=== PATIENT | male | born 1960 | race Caucasian/White ===

== ENCOUNTER 2021-12-29 19:24 | Inpatient (IN) | payer MEDICARE, MEDICAID ==
[~2021-12-29] VITALS: Ht 172.7 cm; Wt 144.9 kg
[2021-12-29 19:26] VITALS: BP 87/39
[2021-12-29] MEDS ORDERED: cefTRIAXone 1GM/50ML D5W 50 ML IV ONE (19:45)
[2021-12-29] MEDS ORDERED: DexAMETHasone SOD PHOS 10MG/1ML VIAL INJ IV ONE (19:45)
[2021-12-29] MEDS ORDERED: AZITHROMYCIN 500MG/ 250ML 250 ML IV ONE (19:45)
[2021-12-29] MEDS ORDERED: SODIUM CHLORIDE 0.9% 500 ML IV ONE (20:00)
[2021-12-29] MEDS ORDERED: LORazepam 2MG/ML-1ML VIAL IV ONE (20:15)
[2021-12-29 20:20] LABS: Albumin 1.6 g/dL (3.4-5.0); BUN/Creatinine Ratio 12.5; Calcium 8.2 mg/dL (8.5-10.1); Potassium 5.4 mmol/L (3.5-5.1)
[2021-12-29 20:23] LABS: Bilirubin, Total 1.9 mg/dL (0.2-1.0); Lactic Acid w/Reflex 3.5 mmol/L (0.4-2.0); Total Protein 6.3 g/dL (6.4-8.2)
[2021-12-29] MEDS: NOREPINEPHRINE 8 MG/250ML KIT 250 ML IV SCH (21:52)
[2021-12-29] MEDS ORDERED: NITROGLYCERIN 0.4 MG SL TAB SL PRN (22:00)
[2021-12-29] MEDS ORDERED: SODIUM BICARBONATE 8.4 % INJ 50ML VIAL IV ONE (22:00)
[2021-12-29] MEDS ORDERED: ALBUMIN 5% 250 ML IV ONE (22:00)
[2021-12-29] MEDS ORDERED: ACETAMINOPHEN 325 MG TAB PO PRN (22:00)
[2021-12-29] MEDS ORDERED: CALCIUM GLUC 1,000mg/50ml-NS 50 ML IV ONE (22:00)
[2021-12-29] MEDS ORDERED: InsuLIN REG 1unit/0.01ml Soln (100units/ml) IV ONE (22:00)
[2021-12-29] MEDS ORDERED: DEXTROSE (50%) 50ML SYRG IV PRN (22:00)
[2021-12-29] MEDS ORDERED: SODIUM ZIRCONIUM CYCL 10 GM PAK PO ONE (22:00)
[2021-12-29] MEDS ORDERED: DEXTROSE (50%) 50ML SYRG IV ONE (22:00)
[2021-12-29 22:25] VITALS: BP 84/49
[2021-12-29 22:34] LABS: Hematocrit 33.9 % (41.0-53.0); Hemoglobin 10.9 g/dL (13.5-17.5); Mean Corpuscular Hgb Conc. 32.2 g/dL (32.0-36.0); Mean Corpuscular Volume 77.6 fL (80.0-100.0); Red Blood Cells 4.36 10^6/uL (4.5-5.90); Red Cell Distribution Width 19.2 % (11.8-14.3); White Blood Cell 3.9 10^3/uL (4.4-10.8)
[2021-12-29 22:43] LABS: Basophils % (manual) 0 (0.0-2.0); Eosinophils % (manual) 0 (0-7); Metamyelocytes % 0; Promyelocytes % 0; Reactive Lymphocytes 0
[2021-12-29 22:59] VITALS: BP 87/39
[2021-12-29 23:44] LABS: Band Neutrophils % (manual) 6; Blast Cells 3; Lymphocytes % (manual) 43 (10.0-50.0); Monocytes % (manual) 44 (0-12); Myelocytes % 3
[2021-12-30] VITALS (89 sets, daily range): BP systolic 12–173; BP diastolic 10–104
[2021-12-30] MEDS: MORPHINE SULFATE INJ 2 MG/ml SYRG IV PRN (02:15)
[2021-12-30] MEDS ORDERED: AMIODARONE HCL 150 MG in D5W 5% 100 ML IV ONE (03:15)
[2021-12-30] MEDS ORDERED: AMIODARONE HCL (50 MG/ ML) 3 ML VIAL IV ONE (03:18)
[2021-12-30] MEDS: PHENYLEPHRINE IV 250 ML IV SCH ×4 (03:30→22:12)
[2021-12-30] MEDS ORDERED: ENOXAPARIN SOD 100 MG/1 ML SYRINGE SC ONE (03:30)
[2021-12-30] MEDS ORDERED: AMIODARONE 450mg/250ml AE 250 ML IV SCH (03:30)
[2021-12-30] MEDS ORDERED: PHENYLEPHRINE IV 250 ML IV ONE ×2 (03:50→05:18)
[2021-12-30 04:02] LABS: Red Cell Distribution Width 19.7 % (11.8-14.3)
[2021-12-30 04:05] LABS: Hematocrit 38.4 % (41.0-53.0); Hemoglobin 11.6 g/dL (13.5-17.5); Mean Corpuscular Hgb Conc. 30.2 g/dL (32.0-36.0); Mean Corpuscular Volume 79.6 fL (80.0-100.0); Red Blood Cells 4.83 10^6/uL (4.5-5.90); White Blood Cell 9.9 10^3/uL (4.4-10.8)
[2021-12-30] MEDS ORDERED: VASOPRESSIN 20 UNIT/ML ONE (04:10)
[2021-12-30 04:25] LABS: Albumin 2.1 g/dL (3.4-5.0); BUN/Creatinine Ratio 11.6; Calcium 8.9 mg/dL (8.5-10.1); Potassium 5.5 mmol/L (3.5-5.1)
[2021-12-30 04:27] LABS: Bilirubin, Total 2.1 mg/dL (0.2-1.0); Total Protein 7.2 g/dL (6.4-8.2)
[2021-12-30] MEDS: ACCU-CHEK COMFORT CURVE STRIP VI SCH ×6 (04:28→20:36)
[2021-12-30] MEDS: InsuLIN REG 1unit/0.01ml Soln (100units/ml) SC SCH ×6 (04:31→20:37)
[2021-12-30 04:38] LABS: Basophils % (manual) 0 (0.0-2.0); Eosinophils % (manual) 0 (0-7); Promyelocytes % 0; Reactive Lymphocytes 0
[2021-12-30] MEDS: VASOPRESSIN 50 UNITS in D5W 5% 247.5 ML IV SCH (05:45)
[2021-12-30] MEDS ORDERED: FUROSEMIDE 20 MG/2 ML VIAL IV SCH (06:00)
[2021-12-30] MEDS: NOREPINEPHRINE 8 MG/250ML KIT 250 ML IV SCH ×3 (06:47→21:23)
[2021-12-30 07:02] LABS: Band Neutrophils % (manual) 4; Lymphocytes % (manual) 52 (10.0-50.0); Metamyelocytes % 4; Monocytes % (manual) 23 (0-12); Myelocytes % 12
[2021-12-30 07:03] LABS: Blast Cells 2
[2021-12-30] MEDS ORDERED: cefTRIAXone 1GM/50ML D5W 50 ML IV SCH (09:00)
[2021-12-30] MEDS: AMIODARONE 450mg/250ml AE 250 ML IV SCH (09:41)
[2021-12-30] MEDS ORDERED: ASPirin 81 mg TAB PO SCH (10:00)
[2021-12-30] MEDS ORDERED: SODIUM CHLORIDE 0.9% 1,000 ML IV SCH (10:00)
[2021-12-30] MEDS ORDERED: AZITHROMYCIN 500MG/ 250ML 250 ML IV SCH (10:00)
[2021-12-30] MEDS ORDERED: BUMETANIDE 2.5mg/10ml (0.25 mg/ml) INJ IV ONE (10:00)
[2021-12-30] MEDS ORDERED: PANTOPRAZOLE 40 MG TAB PO SCH (10:00)
[2021-12-30] MEDS ORDERED: ALBUTEROL SULF 2.5 MG/0.5ML(0.5%) NEB SOLN NEB ONE (12:15)
[2021-12-30] MEDS ORDERED: SODIUM BICARBONATE 8.4% INJ 50ML SYRINGE IV ONE (12:15)
[2021-12-30] MEDS: SODIUM BICARBONATE 50ML VIAL 50 ML in SOD CHL 0.45% 1,000 ML IV SCH (12:30)
[2021-12-30] MEDS ORDERED: ALBUTEROL SULF 2.5 MG/0.5ML(0.5%) NEB SOLN ONE (12:35)
[2021-12-30 14:05] LABS: INR 2.11 (0.9-1.15); Partial Thromboplastin Time 34.7 sec (23.6-33.0)
[2021-12-30] MEDS: LINEZOLID 600MG/300ML 300 ML IV SCH ×2 (14:08→21:24)
[2021-12-30] MEDS ORDERED: LIDOCAINE 1% (LOCAL ANESTH.) PF 5ml SDV ID ONE (15:45)
[2021-12-30] MEDS: MEROPENEM 500MG IVPB 50 ML IV SCH (16:09)
[2021-12-30] MEDS: BUMETANIDE 2.5mg/10ml (0.25 mg/ml) INJ IV SCH (18:49)
[2021-12-30] MEDS: SODIUM CHLOR 0.9% PF (SALINE LOCK) 10ML VIAL/SYR IV SCH (21:32)
[2021-12-30] MEDS ORDERED: ATORVASTATIN 20 MG TAB PO SCH (22:00)
[2021-12-31] VITALS (98 sets, daily range): BP systolic 14–171; BP diastolic 26–83
[2021-12-31] MEDS: MEROPENEM 500MG IVPB 50 ML IV SCH ×2 (00:17→13:15)
[2021-12-31] MEDS: InsuLIN REG 1unit/0.01ml Soln (100units/ml) SC SCH ×6 (00:22→19:28)
[2021-12-31] MEDS: ACCU-CHEK COMFORT CURVE STRIP VI SCH ×6 (00:22→19:27)
[2021-12-31] MEDS: PHENYLEPHRINE IV 250 ML IV SCH ×2 (02:23→07:39)
[2021-12-31] MEDS: AMIODARONE 450mg/250ml AE 250 ML IV SCH ×3 (02:39→18:00)
[2021-12-31] MEDS: SODIUM BICARBONATE 50ML VIAL 50 ML in SOD CHL 0.45% 1,000 ML IV SCH ×2 (02:39→16:15)
[2021-12-31] MEDS: NOREPINEPHRINE 8 MG/250ML KIT 250 ML IV SCH ×4 (02:39→23:56)
[2021-12-31 04:18] LABS: INR 2.12 (0.9-1.15); Partial Thromboplastin Time 30.7 sec (23.6-33.0)
[2021-12-31 04:40] LABS: Hematocrit 37.8 % (41.0-53.0); Mean Corpuscular Hemoglobin 24.8 pg (28.0-32.0); Mean Corpuscular Hgb Conc. 31.8 g/dL (32.0-36.0); Red Blood Cells 4.85 10^6/uL (4.5-5.90); White Blood Cell 16.5 10^3/uL (4.4-10.8)
[2021-12-31 04:43] LABS: Basophils % (manual) 0 (0.0-2.0); Blast Cells 0; Eosinophils % (manual) 0 (0-7); Promyelocytes % 0; Reactive Lymphocytes 0
[2021-12-31 05:09] LABS: Albumin 1.8 g/dL (3.4-5.0); BUN/Creatinine Ratio 15.7; Calcium 8.4 mg/dL (8.5-10.1); Magnesium 2.4 mg/dL (1.6-2.6); Potassium 5.5 mmol/L (3.5-5.1)
[2021-12-31 05:11] LABS: Bilirubin, Total 2.8 mg/dL (0.2-1.0); Total Protein 6.4 g/dL (6.4-8.2)
[2021-12-31] MEDS: VASOPRESSIN 50 UNITS in D5W 5% 247.5 ML IV SCH (05:25)
[2021-12-31] MEDS: BUMETANIDE 2.5mg/10ml (0.25 mg/ml) INJ IV SCH ×2 (05:25→17:45)
[2021-12-31] MEDS ORDERED: ALBUTEROL SULF 2.5 MG/0.5ML(0.5%) NEB SOLN NEB ONE (08:00)
[2021-12-31] MEDS ORDERED: SODIUM BICARBONATE 8.4% INJ 50ML SYRINGE IV ONE (08:00)
[2021-12-31 08:38] LABS: Band Neutrophils % (manual) 14; Lymphocytes % (manual) 38 (10.0-50.0); Metamyelocytes % 11; Monocytes % (manual) 12 (0-12); Myelocytes % 4
[2021-12-31 08:52] LABS: Urine Bacteria NONE SEEN /hpf (None Seen); Urine Blood 2+ /uL (Negative); Urine Specific Gravity 1.012 (1.001-1.035); Urine WBC 184 /hpf (0 - 3); Urine WBC Clumps PRESENT /hpf (None Seen)
[2021-12-31 09:15] LABS: Protein, Urine 109.9 mg/dL (0.0-11.9)
[2021-12-31] MEDS: PANTOPRAZOLE 40 MG/10 ML VIAL INJ IV SCH (09:45)
[2021-12-31] MEDS: SODIUM CHLOR 0.9% PF (SALINE LOCK) 10ML VIAL/SYR IV SCH ×2 (09:45→21:22)
[2021-12-31] MEDS: LINEZOLID 600MG/300ML 300 ML IV SCH ×2 (09:45→21:23)
[2021-12-31] MEDS: MORPHINE SULFATE INJ 2 MG/ml SYRG IV PRN ×2 (10:24→18:00)
[2022-01-01] VITALS (94 sets, daily range): BP systolic 78–208; BP diastolic 24–162
[2022-01-01] MEDS: ACCU-CHEK COMFORT CURVE STRIP VI SCH ×7 (00:13→23:27)
[2022-01-01] MEDS: InsuLIN REG 1unit/0.01ml Soln (100units/ml) SC SCH ×7 (00:14→23:28)
[2022-01-01] MEDS: MEROPENEM 500MG IVPB 50 ML IV SCH ×2 (00:20→14:14)
[2022-01-01 04:20] LABS: Mean Corpuscular Hgb Conc. 31.9 g/dL (32.0-36.0)
[2022-01-01 04:29] LABS: Hematocrit 35.1 % (41.0-53.0); Hemoglobin 11.2 g/dL (13.5-17.5); Mean Corpuscular Hemoglobin 23.9 pg (28.0-32.0); Mean Corpuscular Volume 74.8 fL (80.0-100.0); Red Blood Cells 4.69 10^6/uL (4.5-5.90); Red Cell Distribution Width 19.8 % (11.8-14.3)
[2022-01-01 04:36] LABS: Basophils % (manual) 0 (0.0-2.0); Eosinophils % (manual) 0 (0-7); Promyelocytes % 0; Reactive Lymphocytes 0
[2022-01-01 04:40] LABS: Albumin 1.7 g/dL (3.4-5.0); BUN/Creatinine Ratio 19.9; Calcium 8.2 mg/dL (8.5-10.1); Potassium 4.8 mmol/L (3.5-5.1)
[2022-01-01 04:49] LABS: Bilirubin, Total 1.9 mg/dL (0.2-1.0)
[2022-01-01] MEDS: PHENYLEPHRINE IV 250 ML IV SCH ×3 (05:30→21:32)
[2022-01-01] MEDS: VASOPRESSIN 50 UNITS in D5W 5% 247.5 ML IV SCH (05:38)
[2022-01-01] MEDS: SODIUM BICARBONATE 50ML VIAL 50 ML in SOD CHL 0.45% 1,000 ML IV SCH (05:42)
[2022-01-01] MEDS: BUMETANIDE 2.5mg/10ml (0.25 mg/ml) INJ IV SCH (05:42)
[2022-01-01] MEDS: ONDANSETRON HCL 4 MG/2 ML VIAL IV PRN ×2 (08:10→12:21)
[2022-01-01] MEDS: MORPHINE SULFATE INJ 2 MG/ml SYRG IV PRN ×2 (08:10→12:21)
[2022-01-01] MEDS ORDERED: SODIUM CHLORIDE 0.9% 1,000 ML IV SCH (09:00)
[2022-01-01] MEDS: LINEZOLID 600MG/300ML 300 ML IV SCH (09:57)
[2022-01-01] MEDS: SODIUM CHLOR 0.9% PF (SALINE LOCK) 10ML VIAL/SYR IV SCH ×2 (09:57→21:32)
[2022-01-01] MEDS: PANTOPRAZOLE 40 MG/10 ML VIAL INJ IV SCH (09:57)
[2022-01-01 12:12] LABS: Band Neutrophils % (manual) 22; Blast Cells 1; Lymphocytes % (manual) 5 (10.0-50.0); Metamyelocytes % 26; Monocytes % (manual) 9 (0-12); Myelocytes % 13
[2022-01-01] MEDS: DIGOXIN (250MCG/ML) 2 ML AMPULE IV SCH (14:15)
[2022-01-01] MEDS ORDERED: levoFLOXacin 500MG 100 ML IV SCH (14:22)
[2022-01-01] MEDS: SODIUM CHLORIDE 0.9% 1,000 ML IV SCH (14:29)
[2022-01-01] MEDS ORDERED: levoFLOXacin 500MG 100 ML IV ONE (14:30)
[2022-01-01] MEDS: NOREPINEPHRINE 8 MG/250ML KIT 250 ML IV SCH (21:30)
[2022-01-02] VITALS (83 sets, daily range): BP systolic 74–236; BP diastolic 17–142
[2022-01-02] MEDS: MEROPENEM 500MG IVPB 50 ML IV SCH (00:04)
[2022-01-02] MEDS: AMIODARONE 450mg/250ml AE 250 ML IV SCH ×2 (01:38→14:07)
[2022-01-02 03:45] LABS: Hemoglobin 9.6 g/dL (13.5-17.5)
[2022-01-02 03:48] LABS: Hematocrit 31.8 % (41.0-53.0); Mean Corpuscular Hemoglobin 23.6 pg (28.0-32.0); Mean Corpuscular Hgb Conc. 30.3 g/dL (32.0-36.0); Mean Corpuscular Volume 77.9 fL (80.0-100.0); Red Blood Cells 4.08 10^6/uL (4.5-5.90); Red Cell Distribution Width 19.8 % (11.8-14.3)
[2022-01-02] MEDS: ACCU-CHEK COMFORT CURVE STRIP VI SCH ×4 (04:13→18:11)
[2022-01-02] MEDS: InsuLIN REG 1unit/0.01ml Soln (100units/ml) SC SCH ×4 (04:14→18:25)
[2022-01-02 04:16] LABS: Albumin 1.4 g/dL (3.4-5.0); Calcium 6.6 mg/dL (8.5-10.1)
[2022-01-02 04:21] LABS: Bilirubin, Total 0.9 mg/dL (0.2-1.0); Total Protein 4.8 g/dL (6.4-8.2)
[2022-01-02 04:33] LABS: White Blood Cell 35.2 10^3/uL (4.4-10.8)
[2022-01-02 04:34] LABS: Basophils % (manual) 0 (0.0-2.0); Blast Cells 0; Eosinophils % (manual) 0 (0-7); Promyelocytes % 0; Reactive Lymphocytes 0
[2022-01-02] MEDS: PHENYLEPHRINE IV 250 ML IV SCH ×3 (06:30→23:20)
[2022-01-02 07:06] LABS: Band Neutrophils % (manual) 9; Lymphocytes % (manual) 17 (10.0-50.0); Metamyelocytes % 9; Monocytes % (manual) 2 (0-12); Myelocytes % 35
[2022-01-02] MEDS: SODIUM CHLORIDE 0.9% 1,000 ML IV SCH ×2 (07:48→09:30)
[2022-01-02] MEDS ORDERED: DEXTROSE (50%) 50ML SYRG IV PRN (09:30)
[2022-01-02] MEDS: PANTOPRAZOLE 40 MG/10 ML VIAL INJ IV SCH (09:36)
[2022-01-02] MEDS: levoFLOXacin 250MG 50 ML IV SCH (09:38)
[2022-01-02] MEDS: SODIUM CHLOR 0.9% PF (SALINE LOCK) 10ML VIAL/SYR IV SCH ×2 (09:41→21:47)
[2022-01-02] MEDS ORDERED: DIGOXIN (250MCG/ML) 2 ML AMPULE IV SCH (10:00)
[2022-01-02] MEDS ORDERED: METOPROLOL TARTRATE 25 MG TAB PO SCH (10:00)
[2022-01-02] MEDS: INSULIN LANTUS (GLARGINE) 1 /0.01ml (100units/ml) SC SCH ×2 (10:20→21:48)
[2022-01-02] MEDS: ALBUMIN 25% 100 ML IV SCH ×2 (10:23→18:11)
[2022-01-02] MEDS: MEROPENEM 1GM IVPB 100 ML IV SCH (14:12)
[2022-01-02] MEDS: NOREPINEPHRINE 8 MG/250ML KIT 250 ML IV SCH (23:17)
[2022-01-03] VITALS (101 sets, daily range): BP systolic 77–164; BP diastolic 29–144
[2022-01-03] MEDS: ACCU-CHEK COMFORT CURVE STRIP VI SCH ×4 (00:06→17:59)
[2022-01-03] MEDS: InsuLIN REG 1unit/0.01ml Soln (100units/ml) SC SCH ×4 (00:09→18:01)
[2022-01-03] MEDS: ALBUMIN 25% 100 ML IV SCH (01:08)
[2022-01-03] MEDS: MEROPENEM 1GM IVPB 100 ML IV SCH ×2 (01:08→15:09)
[2022-01-03] MEDS: AMIODARONE 450mg/250ml AE 250 ML IV SCH ×3 (03:04→22:12)
[2022-01-03 04:04] LABS: Mean Corpuscular Hgb Conc. 30.5 g/dL (32.0-36.0); Red Blood Cells 4.25 10^6/uL (4.5-5.90)
[2022-01-03 04:08] LABS: Hematocrit 33.3 % (41.0-53.0); Hemoglobin 10.2 g/dL (13.5-17.5); Mean Corpuscular Hemoglobin 23.9 pg (28.0-32.0); Mean Corpuscular Volume 78.3 fL (80.0-100.0)
[2022-01-03 04:15] LABS: Calcium 7.4 mg/dL (8.5-10.1)
[2022-01-03 04:18] LABS: BUN/Creatinine Ratio 27.6
[2022-01-03 04:27] LABS: Red Cell Distribution Width 20.1 % (11.8-14.3)
[2022-01-03 04:29] LABS: Basophils % (manual) 0 (0.0-2.0); Blast Cells 0; Eosinophils % (manual) 0 (0-7); Promyelocytes % 0; Reactive Lymphocytes 0
[2022-01-03] MEDS: PHENYLEPHRINE IV 250 ML IV SCH ×4 (04:29→20:19)
[2022-01-03 04:50] LABS: Band Neutrophils % (manual) 8; Lymphocytes % (manual) 15 (10.0-50.0); Metamyelocytes % 2; Monocytes % (manual) 10 (0-12); Myelocytes % 18
[2022-01-03] MEDS: SODIUM CHLORIDE 0.9% 1,000 ML IV SCH (05:58)
[2022-01-03] MEDS: NOREPINEPHRINE 8 MG/250ML KIT 250 ML IV SCH (09:09)
[2022-01-03] MEDS: PANTOPRAZOLE 40 MG/10 ML VIAL INJ IV SCH (10:22)
[2022-01-03] MEDS: SODIUM CHLOR 0.9% PF (SALINE LOCK) 10ML VIAL/SYR IV SCH ×2 (10:22→22:13)
[2022-01-03] MEDS: DIGOXIN (250MCG/ML) 2 ML AMPULE IV SCH (10:24)
[2022-01-03] MEDS: levoFLOXacin 250MG 50 ML IV SCH (10:25)
[2022-01-03] MEDS: INSULIN LANTUS (GLARGINE) 1 /0.01ml (100units/ml) SC SCH ×2 (10:42→22:09)
[2022-01-03] MEDS ORDERED: LINEZOLID 600MG/300ML 300 ML IV SCH (10:45)
[2022-01-03] MEDS ORDERED: FLUCONAZOLE 200MG/100ML 100 ML IV SCH ×2 (11:00)
[2022-01-03] MEDS: LINEZOLID 600MG/300ML 300 ML IV SCH ×2 (11:58→22:12)
[2022-01-03] MEDS: FLUCONAZOLE 200MG/100ML 100 ML IV SCH ×2 (14:00→17:59)
[2022-01-04] VITALS (86 sets, daily range): BP systolic 91–149; BP diastolic 42–72
[2022-01-04] MEDS: ACCU-CHEK COMFORT CURVE STRIP VI SCH ×4 (00:12→17:47)
[2022-01-04] MEDS: InsuLIN REG 1unit/0.01ml Soln (100units/ml) SC SCH ×4 (00:13→17:51)
[2022-01-04] MEDS: PHENYLEPHRINE IV 250 ML IV SCH (01:22)
[2022-01-04] MEDS: MEROPENEM 1GM IVPB 100 ML IV SCH ×3 (01:22→21:48)
[2022-01-04] MEDS: SODIUM CHLORIDE 0.9% 1,000 ML IV SCH (01:30)
[2022-01-04 04:11] LABS: BUN/Creatinine Ratio 33.7; Calcium 6.9 mg/dL (8.5-10.1); Potassium 3.9 mmol/L (3.5-5.1)
[2022-01-04 04:13] LABS: Hematocrit 31.9 % (41.0-53.0); Hemoglobin 9.6 g/dL (13.5-17.5); Mean Corpuscular Hemoglobin 23.6 pg (28.0-32.0); Mean Corpuscular Hgb Conc. 30.1 g/dL (32.0-36.0); Mean Corpuscular Volume 78.3 fL (80.0-100.0); Red Blood Cells 4.07 10^6/uL (4.5-5.90)
[2022-01-04] MEDS: MORPHINE SULFATE INJ 2 MG/ml SYRG IV PRN ×2 (04:16→10:04)
[2022-01-04 04:27] LABS: Basophils % (manual) 0 (0.0-2.0); Blast Cells 0; Reactive Lymphocytes 0; Red Cell Distribution Width 20.1 % (11.8-14.3); White Blood Cell 47.9 10^3/uL (4.4-10.8)
[2022-01-04 07:46] LABS: Band Neutrophils % (manual) 6; Eosinophils % (manual) 1 (0-7); Lymphocytes % (manual) 11 (10.0-50.0); Metamyelocytes % 9; Monocytes % (manual) 8 (0-12); Myelocytes % 11; Promyelocytes % 3
[2022-01-04] MEDS: levoFLOXacin 250MG 50 ML IV SCH (09:48)
[2022-01-04] MEDS: SODIUM CHLOR 0.9% PF (SALINE LOCK) 10ML VIAL/SYR IV SCH ×2 (09:48→21:52)
[2022-01-04] MEDS: PANTOPRAZOLE 40 MG/10 ML VIAL INJ IV SCH (09:48)
[2022-01-04] MEDS: INSULIN LANTUS (GLARGINE) 1 /0.01ml (100units/ml) SC SCH ×2 (10:00→21:50)
[2022-01-04] MEDS: FLUCONAZOLE 200MG/100ML 100 ML IV SCH ×2 (12:08→13:14)
[2022-01-04] MEDS ORDERED: AMIODARONE HCL 200 MG TAB PO ONE (14:25)
[2022-01-04] MEDS: NOREPINEPHRINE 8 MG/250ML KIT 250 ML IV SCH (20:11)
[2022-01-04] MEDS: AMOXICILLIN/CLAVULAN 500 MG TAB PO SCH (21:37)
[2022-01-04] MEDS: AMIODARONE HCL 200 MG TAB PO SCH (21:40)
[2022-01-05] VITALS (37 sets, daily range): BP systolic 89–143; BP diastolic 44–80
[2022-01-05] MEDS: ACCU-CHEK COMFORT CURVE STRIP VI SCH ×4 (00:18→17:46)
[2022-01-05] MEDS: InsuLIN REG 1unit/0.01ml Soln (100units/ml) SC SCH ×4 (00:19→17:49)
[2022-01-05] MEDS: PHENYLEPHRINE IV 250 ML IV SCH ×2 (04:20→12:40)
[2022-01-05 04:38] LABS: Hematocrit 33.6 % (41.0-53.0); Hemoglobin 10.4 g/dL (13.5-17.5); Mean Corpuscular Volume 77.2 fL (80.0-100.0); Red Blood Cells 4.35 10^6/uL (4.5-5.90); Red Cell Distribution Width 19.2 % (11.8-14.3)
[2022-01-05 04:48] LABS: Albumin 1.9 g/dL (3.4-5.0); BUN/Creatinine Ratio 44.3; Bilirubin, Total 0.7 mg/dL (0.2-1.0); Calcium 7.8 mg/dL (8.5-10.1); Total Protein 5.4 g/dL (6.4-8.2)
[2022-01-05 05:16] LABS: White Blood Cell 48.6 10^3/uL (4.4-10.8)
[2022-01-05 05:18] LABS: Basophils % (manual) 0 (0.0-2.0); Blast Cells 0; Eosinophils % (manual) 0 (0-7); Promyelocytes % 0; Reactive Lymphocytes 0
[2022-01-05 05:32] LABS: Metamyelocytes % 6; Monocytes % (manual) 4 (0-12); Myelocytes % 12
[2022-01-05 05:34] LABS: Band Neutrophils % (manual) 14; Lymphocytes % (manual) 11 (10.0-50.0)
[2022-01-05] MEDS: MEROPENEM 1GM IVPB 100 ML IV SCH ×3 (05:34→22:32)
[2022-01-05] MEDS: AMOXICILLIN/CLAVULAN 500 MG TAB PO SCH (05:34)
[2022-01-05] MEDS: INSULIN LANTUS (GLARGINE) 1 /0.01ml (100units/ml) SC SCH ×2 (10:00→22:41)
[2022-01-05] MEDS: PANTOPRAZOLE 40 MG/10 ML VIAL INJ IV SCH (10:11)
[2022-01-05] MEDS: levoFLOXacin 250MG 50 ML IV SCH (10:11)
[2022-01-05] MEDS: DIGOXIN (250MCG/ML) 2 ML AMPULE IV SCH (10:11)
[2022-01-05] MEDS: SODIUM CHLOR 0.9% PF (SALINE LOCK) 10ML VIAL/SYR IV SCH ×2 (10:12→22:32)
[2022-01-05] MEDS: AMIODARONE HCL 200 MG TAB PO SCH ×2 (10:12→22:37)
[2022-01-05] MEDS: FLUCONAZOLE 200MG/100ML 100 ML IV SCH ×2 (12:56→13:56)
[2022-01-05] MEDS ORDERED: VANCOMYCIN PER PHARMACY 0 MG IV SCH (14:45)
[2022-01-05] MEDS ORDERED: MECLIZINE HCL 25 MG TAB PO PRN (15:15)
[2022-01-05] MEDS ORDERED: ATOR40TA52 PO (15:42)
[2022-01-05] MEDS ORDERED: FOLI1TAB6 PO (15:42)
[2022-01-05] MEDS ORDERED: PANT40TA2 PO (15:42)
[2022-01-05] MEDS ORDERED: LEVO50TA7 PO (15:42)
[2022-01-05] MEDS ORDERED: IPRA0.00 NEB (15:42)
[2022-01-05] MEDS ORDERED: FERR-20 PO (15:42)
[2022-01-05] MEDS ORDERED: LOSA-69 PO (15:42)
[2022-01-05] MEDS ORDERED: ALLO100T PO (15:42)
[2022-01-05] MEDS ORDERED: VANCOMYCIN 1GM/250ML 250 ML IV SCH (17:00)
[2022-01-05] MEDS ORDERED: EPINEPHrine HCL 1 MG/1 ML AMP ONE (17:58)
[2022-01-05] MEDS ORDERED: diphenhdrAMINE HCL 50 MG/1 ML VL ONE (17:59)
[2022-01-05] MEDS ORDERED: methylPREDNISolone SOD SUCC 40 MG/ML VL ONE (18:03)
[2022-01-05] MEDS ORDERED: ALBUTEROL SULF 2.5 MG/0.5ML(0.5%) NEB SOLN ONE (18:04)
[2022-01-05] MEDS ORDERED: IPRATROPIUM BROM 0.5 MG/2.5ML INH SOL ONE (18:04)
[2022-01-05] MEDS ORDERED: EPINEPHrine HCL 0.5 ML NEB ONE (18:04)
[2022-01-05] MEDS ORDERED: diphenhdrAMINE HCL 50 MG/1 ML VL IV ONE (18:15)
[2022-01-05] MEDS ORDERED: EPINEPHrine HCL 1 MG/1 ML AMP IM ONE (18:15)
[2022-01-05] MEDS ORDERED: methylPREDNISolone SOD SUCC 125 MG/2 ML VL IV ONE (18:15)
[2022-01-06] VITALS (27 sets, daily range): BP systolic 105–139; BP diastolic 51–85
[2022-01-06] MEDS: ACCU-CHEK COMFORT CURVE STRIP VI SCH ×5 (00:14→23:37)
[2022-01-06] MEDS: InsuLIN REG 1unit/0.01ml Soln (100units/ml) SC SCH ×5 (00:16→23:52)
[2022-01-06 04:37] LABS: Hemoglobin 10.4 g/dL (13.5-17.5)
[2022-01-06 04:43] LABS: Hematocrit 33.5 % (41.0-53.0); Mean Corpuscular Hemoglobin 23.8 pg (28.0-32.0); Mean Corpuscular Volume 76.6 fL (80.0-100.0); Red Blood Cells 4.37 10^6/uL (4.5-5.90); Red Cell Distribution Width 19.8 % (11.8-14.3)
[2022-01-06 04:54] LABS: BUN/Creatinine Ratio 43.5; Calcium 7.9 mg/dL (8.5-10.1)
[2022-01-06 05:04] LABS: White Blood Cell 56.5 10^3/uL (4.4-10.8)
[2022-01-06 05:06] LABS: Basophils % (manual) 0 (0.0-2.0); Blast Cells 0; Eosinophils % (manual) 0 (0-7); Promyelocytes % 0; Reactive Lymphocytes 0
[2022-01-06] MEDS: MEROPENEM 1GM IVPB 100 ML IV SCH (05:56)
[2022-01-06 08:03] LABS: Band Neutrophils % (manual) 16; Lymphocytes % (manual) 5 (10.0-50.0); Metamyelocytes % 4; Monocytes % (manual) 4 (0-12); Myelocytes % 8
[2022-01-06] MEDS: levoFLOXacin 250MG 50 ML IV SCH (09:20)
[2022-01-06] MEDS: FUROSEMIDE 40 MG TAB PO SCH (09:20)
[2022-01-06] MEDS: PANTOPRAZOLE 40 MG TAB PO SCH (09:20)
[2022-01-06] MEDS: AMIODARONE HCL 200 MG TAB PO SCH ×2 (09:21→22:00)
[2022-01-06] MEDS: SODIUM CHLOR 0.9% PF (SALINE LOCK) 10ML VIAL/SYR IV SCH ×2 (09:21→22:01)
[2022-01-06] MEDS: INSULIN LANTUS (GLARGINE) 1 /0.01ml (100units/ml) SC SCH ×2 (09:47→22:07)
[2022-01-06] MEDS: FLUCONAZOLE 200MG/100ML 100 ML IV SCH ×2 (11:34→13:12)
[2022-01-06] MEDS: metroNIDAZOLE 500MG/100ML 100 ML IV SCH ×2 (13:57→22:00)
[2022-01-06] MEDS: cefTAZidime 1 GM in SODIUM CHL 0.9% 50 ML IV SCH ×2 (15:23→23:28)
[2022-01-07] VITALS (28 sets, daily range): BP systolic 107–154; BP diastolic 47–81
[2022-01-07 04:33] LABS: Calcium 7.6 mg/dL (8.5-10.1); Potassium 4.5 mmol/L (3.5-5.1)
[2022-01-07 04:36] LABS: BUN/Creatinine Ratio 46.1
[2022-01-07 04:37] LABS: Hematocrit 31.5 % (41.0-53.0); Hemoglobin 9.9 g/dL (13.5-17.5); Mean Corpuscular Hgb Conc. 31.3 g/dL (32.0-36.0); Mean Corpuscular Volume 76.8 fL (80.0-100.0); Red Cell Distribution Width 19.4 % (11.8-14.3)
[2022-01-07 04:44] LABS: Bilirubin, Total 0.5 mg/dL (0.2-1.0); Total Protein 5.4 g/dL (6.4-8.2)
[2022-01-07] MEDS: metroNIDAZOLE 500MG/100ML 100 ML IV SCH ×2 (05:01→14:22)
[2022-01-07 05:10] LABS: White Blood Cell 51.5 10^3/uL (4.4-10.8)
[2022-01-07 05:11] LABS: Basophils % (manual) 0 (0.0-2.0); Blast Cells 0; Eosinophils % (manual) 0 (0-7); Myelocytes % 0; Promyelocytes % 0; Reactive Lymphocytes 0
[2022-01-07] MEDS: ACCU-CHEK COMFORT CURVE STRIP VI SCH ×3 (05:11→17:44)
[2022-01-07] MEDS: InsuLIN REG 1unit/0.01ml Soln (100units/ml) SC SCH ×3 (05:12→17:43)
[2022-01-07] MEDS: cefTAZidime 1 GM in SODIUM CHL 0.9% 50 ML IV SCH ×3 (06:13→21:40)
[2022-01-07 07:34] LABS: Band Neutrophils % (manual) 70; Lymphocytes % (manual) 4 (10.0-50.0); Metamyelocytes % 6; Monocytes % (manual) 3 (0-12)
[2022-01-07] MEDS: AMIODARONE HCL 200 MG TAB PO SCH ×2 (09:56→21:25)
[2022-01-07] MEDS: DIGOXIN 0.125 MG TAB PO SCH (09:59)
[2022-01-07] MEDS: PANTOPRAZOLE 40 MG TAB PO SCH (09:59)
[2022-01-07] MEDS: FUROSEMIDE 40 MG TAB PO SCH (10:00)
[2022-01-07] MEDS: INSULIN LANTUS (GLARGINE) 1 /0.01ml (100units/ml) SC SCH ×2 (10:02→21:37)
[2022-01-07] MEDS: SODIUM CHLOR 0.9% PF (SALINE LOCK) 10ML VIAL/SYR IV SCH ×2 (10:10→21:28)
[2022-01-07] MEDS: levoFLOXacin 250MG 50 ML IV SCH (10:10)
[2022-01-07 11:04] LABS: INR 1.45 (0.9-1.15); Partial Thromboplastin Time 26.5 sec (23.6-33.0)
[2022-01-07] MEDS: FLUCONAZOLE 200MG/100ML 100 ML IV SCH ×2 (13:02→14:20)
[2022-01-07] MEDS: MORPHINE SULFATE INJ 2 MG/ml SYRG IV PRN (16:21)
[2022-01-07] MEDS: metroNIDAZOLE 500 MG TAB PO SCH (21:26)
[2022-01-08] VITALS (14 sets, daily range): BP systolic 103–149; BP diastolic 48–90
[2022-01-08] MEDS: ACCU-CHEK COMFORT CURVE STRIP VI SCH ×5 (00:15→23:12)
[2022-01-08] MEDS: InsuLIN REG 1unit/0.01ml Soln (100units/ml) SC SCH ×5 (00:17→23:14)
[2022-01-08 05:00] LABS: Mean Corpuscular Hemoglobin 23.8 pg (28.0-32.0); Mean Corpuscular Hgb Conc. 30.7 g/dL (32.0-36.0); Mean Corpuscular Volume 77.5 fL (80.0-100.0)
[2022-01-08 05:03] LABS: Hemoglobin 11.3 g/dL (13.5-17.5); Red Blood Cells 4.78 10^6/uL (4.5-5.90); Red Cell Distribution Width 19.7 % (11.8-14.3)
[2022-01-08 05:18] LABS: BUN/Creatinine Ratio 46.6; Calcium 7.9 mg/dL (8.5-10.1); Potassium 5.4 mmol/L (3.5-5.1)
[2022-01-08 05:41] LABS: White Blood Cell 67.4 10^3/uL (4.4-10.8)
[2022-01-08 05:43] LABS: Basophils % (manual) 0 (0.0-2.0); Blast Cells 0; Eosinophils % (manual) 0 (0-7); Promyelocytes % 0; Reactive Lymphocytes 0
[2022-01-08] MEDS: metroNIDAZOLE 500 MG TAB PO SCH ×3 (06:20→22:20)
[2022-01-08] MEDS: cefTAZidime 1 GM in SODIUM CHL 0.9% 50 ML IV SCH ×3 (06:20→22:00)
[2022-01-08 07:33] LABS: Band Neutrophils % (manual) 18; Lymphocytes % (manual) 6 (10.0-50.0); Metamyelocytes % 5; Monocytes % (manual) 3 (0-12); Myelocytes % 7
[2022-01-08] MEDS ORDERED: FUROSEMIDE 20 MG/2 ML VIAL IV ONE (10:45)
[2022-01-08] MEDS ORDERED: AMPICILLIN INJ 1 GM in SODIUM CHL 0.9% 50 ML IV ONE (10:45)
[2022-01-08] MEDS: INSULIN LANTUS (GLARGINE) 1 /0.01ml (100units/ml) SC SCH ×2 (11:10→12:26)
[2022-01-08] MEDS: levoFLOXacin 250MG 50 ML IV SCH (11:28)
[2022-01-08] MEDS: PANTOPRAZOLE 40 MG TAB PO SCH (11:29)
[2022-01-08] MEDS: FUROSEMIDE 40 MG TAB PO SCH (11:49)
[2022-01-08] MEDS: AMIODARONE HCL 200 MG TAB PO SCH ×2 (11:51→22:19)
[2022-01-08] MEDS: DIGOXIN 0.125 MG TAB PO SCH (11:51)
[2022-01-08] MEDS: SODIUM CHLOR 0.9% PF (SALINE LOCK) 10ML VIAL/SYR IV SCH ×2 (11:52→22:19)
[2022-01-08] MEDS: FLORASTOR (S. BOULARDII) 250 MG CAP PO SCH (11:52)
[2022-01-08] MEDS: FLUCONAZOLE 200MG/100ML 100 ML IV SCH ×2 (16:16→18:24)
[2022-01-08] MEDS: AMPICILLIN INJ 1 GM in SODIUM CHL 0.9% 50 ML IV SCH (20:09)
[2022-01-09] MEDS: AMPICILLIN INJ 1 GM in SODIUM CHL 0.9% 50 ML IV SCH ×5 (00:25→23:46)
[2022-01-09 05:00] VITALS: BP 127/80
[2022-01-09 06:20] LABS: Hemoglobin 11.1 g/dL (13.5-17.5); Mean Corpuscular Hemoglobin 24.5 pg (28.0-32.0); Mean Corpuscular Hgb Conc. 31.6 g/dL (32.0-36.0); Mean Corpuscular Volume 77.5 fL (80.0-100.0); Red Blood Cells 4.51 10^6/uL (4.5-5.90)
[2022-01-09 06:23] LABS: Red Cell Distribution Width 20.1 % (11.8-14.3)
[2022-01-09 06:29] LABS: White Blood Cell 45.7 10^3/uL (4.4-10.8)
[2022-01-09 06:31] LABS: Basophils % (manual) 0 (0.0-2.0); Blast Cells 0; Eosinophils % (manual) 0 (0-7); Myelocytes % 0; Promyelocytes % 0; Reactive Lymphocytes 0
[2022-01-09 06:32] LABS: Calcium 8.2 mg/dL (8.5-10.1); Potassium 4.7 mmol/L (3.5-5.1)
[2022-01-09 06:35] LABS: BUN/Creatinine Ratio 45.9
[2022-01-09] MEDS: cefTAZidime 1 GM in SODIUM CHL 0.9% 50 ML IV SCH ×3 (06:35→23:37)
[2022-01-09] MEDS: ACCU-CHEK COMFORT CURVE STRIP VI SCH ×3 (06:36→19:35)
[2022-01-09] MEDS: InsuLIN REG 1unit/0.01ml Soln (100units/ml) SC SCH ×3 (06:37→18:00)
[2022-01-09] MEDS: metroNIDAZOLE 500 MG TAB PO SCH ×3 (06:48→23:36)
[2022-01-09 07:20] LABS: Band Neutrophils % (manual) 70; Lymphocytes % (manual) 6 (10.0-50.0); Metamyelocytes % 9; Monocytes % (manual) 4 (0-12)
[2022-01-09 09:00] VITALS: BP 127/85
[2022-01-09] MEDS: INSULIN LANTUS (GLARGINE) 1 /0.01ml (100units/ml) SC SCH (10:00)
[2022-01-09] MEDS ORDERED: FUROSEMIDE 20 MG/2 ML VIAL IV ONE ×2 (10:30→12:00)
[2022-01-09] MEDS ORDERED: POTASSIUM CHL 20 Meq TABLET PO ONE ×2 (10:30→12:00)
[2022-01-09] MEDS: SODIUM CHLOR 0.9% PF (SALINE LOCK) 10ML VIAL/SYR IV SCH ×2 (11:20→23:35)
[2022-01-09] MEDS: AMIODARONE HCL 200 MG TAB PO SCH ×2 (11:23→23:36)
[2022-01-09] MEDS: FLORASTOR (S. BOULARDII) 250 MG CAP PO SCH (11:31)
[2022-01-09] MEDS: levoFLOXacin 250MG 50 ML IV SCH (11:31)
[2022-01-09] MEDS: DIGOXIN 0.125 MG TAB PO SCH (11:32)
[2022-01-09] MEDS: PANTOPRAZOLE 40 MG TAB PO SCH (11:32)
[2022-01-09 13:00] VITALS: BP 104/62
[2022-01-09] MEDS: FLUCONAZOLE 200MG/100ML 100 ML IV SCH ×2 (15:15→17:23)
[2022-01-09 17:00] VITALS: BP 131/79
[2022-01-09 21:40] VITALS: BP 97/45
[2022-01-10] MEDS: ACCU-CHEK COMFORT CURVE STRIP VI SCH ×5 (00:04→23:43)
[2022-01-10] MEDS: INSULIN LANTUS (GLARGINE) 1 /0.01ml (100units/ml) SC SCH ×3 (00:07→21:28)
[2022-01-10] MEDS: InsuLIN REG 1unit/0.01ml Soln (100units/ml) SC SCH ×5 (00:07→23:43)
[2022-01-10 04:35] VITALS: BP 107/62
[2022-01-10] MEDS: metroNIDAZOLE 500 MG TAB PO SCH ×3 (06:04→20:30)
[2022-01-10] MEDS: cefTAZidime 1 GM in SODIUM CHL 0.9% 50 ML IV SCH ×3 (06:04→20:57)
[2022-01-10] MEDS: AMPICILLIN INJ 1 GM in SODIUM CHL 0.9% 50 ML IV SCH ×4 (06:04→23:43)
[2022-01-10 07:27] LABS: Hemoglobin 9.8 g/dL (13.5-17.5); Nucleated Red Blood Cells % 0.1 %
[2022-01-10 07:30] LABS: Basophils # (auto) 0 10 ^3/uL (0-0.2); Basophils % (auto) 0.2 % (0.0-2.0); Eosinophils # (auto) 0 10 ^3/uL (0-0.8); Hematocrit 31.7 % (41.0-53.0); Lymphocytes % (auto) 4.4 % (10.0-50.0); Mean Corpuscular Hemoglobin 23.6 pg (28.0-32.0); Mean Corpuscular Volume 76.3 fL (80.0-100.0); Monocytes % (auto) 4.2 % (0.0-12.0); Neutrophils # (auto) 21.1 10 ^3/uL (1.6-8.6); Neutrophils % (auto) 91.2 % (37.0-80.0); Red Blood Cells 4.16 10^6/uL (4.5-5.90); Red Cell Distribution Width 19.4 % (11.8-14.3); White Blood Cell 23.2 10^3/uL (4.4-10.8)
[2022-01-10 07:52] LABS: Potassium 4.4 mmol/L (3.5-5.1)
[2022-01-10 07:57] LABS: BUN/Creatinine Ratio 44.8; Calcium 7.9 mg/dL (8.5-10.1)
[2022-01-10 09:00] VITALS: BP 129/64
[2022-01-10] MEDS: levoFLOXacin 250MG 50 ML IV SCH (09:04)
[2022-01-10] MEDS: PANTOPRAZOLE 40 MG TAB PO SCH (09:05)
[2022-01-10] MEDS: FLORASTOR (S. BOULARDII) 250 MG CAP PO SCH (09:05)
[2022-01-10] MEDS: SODIUM CHLOR 0.9% PF (SALINE LOCK) 10ML VIAL/SYR IV SCH ×2 (09:05→20:32)
[2022-01-10] MEDS: POTASSIUM CHL 20 Meq TABLET PO SCH (09:05)
[2022-01-10] MEDS: DIGOXIN 0.125 MG TAB PO SCH (09:11)
[2022-01-10] MEDS: FUROSEMIDE 20 MG/2 ML VIAL IV SCH (09:11)
[2022-01-10] MEDS: AMIODARONE HCL 200 MG TAB PO SCH ×2 (09:12→20:31)
[2022-01-10] MEDS: MORPHINE SULFATE INJ 2 MG/ml SYRG IV PRN (12:25)
[2022-01-10 13:00] VITALS: BP 121/58
[2022-01-10] MEDS: FLUCONAZOLE 200MG/100ML 100 ML IV SCH ×2 (13:07→15:12)
[2022-01-10 17:00] VITALS: BP 132/69
[2022-01-10] MEDS ORDERED: levoFLOXacin 500MG 100 ML IV ONE (17:15)
[2022-01-10] MEDS ORDERED: levoFLOXacin 250MG 50 ML IV ONE (17:15)
[2022-01-10 22:00] VITALS: BP 107/40
[2022-01-11] VITALS (7 sets, daily range): BP systolic 99–147; BP diastolic 65–80
[2022-01-11] MEDS: cefTAZidime 1 GM in SODIUM CHL 0.9% 50 ML IV SCH ×3 (05:19→22:49)
[2022-01-11] MEDS: AMPICILLIN INJ 1 GM in SODIUM CHL 0.9% 50 ML IV SCH ×4 (05:19→23:37)
[2022-01-11] MEDS: InsuLIN REG 1unit/0.01ml Soln (100units/ml) SC SCH ×4 (05:20→23:37)
[2022-01-11] MEDS: metroNIDAZOLE 500 MG TAB PO SCH ×3 (05:20→20:46)
[2022-01-11] MEDS: ACCU-CHEK COMFORT CURVE STRIP VI SCH ×4 (05:20→23:36)
[2022-01-11] MEDS: levoFLOXacin 750MG 150 ML IV SCH (08:43)
[2022-01-11] MEDS: DIGOXIN 0.125 MG TAB PO SCH (08:44)
[2022-01-11] MEDS: POTASSIUM CHL 20 Meq TABLET PO SCH (08:44)
[2022-01-11] MEDS: SODIUM CHLOR 0.9% PF (SALINE LOCK) 10ML VIAL/SYR IV SCH ×2 (08:45→20:47)
[2022-01-11] MEDS: FLORASTOR (S. BOULARDII) 250 MG CAP PO SCH (08:45)
[2022-01-11] MEDS: FUROSEMIDE 20 MG/2 ML VIAL IV SCH ×2 (08:45→10:24)
[2022-01-11] MEDS: PANTOPRAZOLE 40 MG TAB PO SCH (08:45)
[2022-01-11] MEDS: AMIODARONE HCL 200 MG TAB PO SCH ×2 (08:47→20:46)
[2022-01-11] MEDS: INSULIN LANTUS (GLARGINE) 1 /0.01ml (100units/ml) SC SCH ×2 (09:08→20:53)
[2022-01-11] MEDS: FLUCONAZOLE 200MG/100ML 100 ML IV SCH ×2 (12:19→14:24)
[2022-01-12 05:30] VITALS: BP 114/67
[2022-01-12] MEDS: AMPICILLIN INJ 1 GM in SODIUM CHL 0.9% 50 ML IV SCH ×3 (05:38→18:27)
[2022-01-12] MEDS: metroNIDAZOLE 500 MG TAB PO SCH ×3 (05:39→21:33)
[2022-01-12] MEDS: InsuLIN REG 1unit/0.01ml Soln (100units/ml) SC SCH ×4 (05:39→23:08)
[2022-01-12] MEDS: ACCU-CHEK COMFORT CURVE STRIP VI SCH ×4 (05:39→23:08)
[2022-01-12] MEDS: cefTAZidime 1 GM in SODIUM CHL 0.9% 50 ML IV SCH ×3 (05:58→21:32)
[2022-01-12 09:00] VITALS: BP 135/72
[2022-01-12] MEDS: SODIUM CHLOR 0.9% PF (SALINE LOCK) 10ML VIAL/SYR IV SCH ×2 (09:45→21:33)
[2022-01-12] MEDS: levoFLOXacin 750MG 150 ML IV SCH (09:45)
[2022-01-12] MEDS: FLORASTOR (S. BOULARDII) 250 MG CAP PO SCH (09:46)
[2022-01-12] MEDS: PANTOPRAZOLE 40 MG TAB PO SCH (09:46)
[2022-01-12] MEDS: POTASSIUM CHL 20 Meq TABLET PO SCH ×2 (09:46→21:32)
[2022-01-12] MEDS: AMIODARONE HCL 200 MG TAB PO SCH ×2 (09:47→21:33)
[2022-01-12] MEDS: DIGOXIN 0.125 MG TAB PO SCH (09:47)
[2022-01-12] MEDS: FUROSEMIDE 20 MG/2 ML VIAL IV SCH ×2 (09:48→21:33)
[2022-01-12] MEDS: INSULIN LANTUS (GLARGINE) 1 /0.01ml (100units/ml) SC SCH ×2 (10:51→23:06)
[2022-01-12] MEDS: MORPHINE SULFATE INJ 2 MG/ml SYRG IV PRN (11:21)
[2022-01-12 13:00] VITALS: BP 124/64
[2022-01-12 16:00] LABS: Basophils # (auto) 0.1 10 ^3/uL (0-0.2); Basophils % (auto) 0.8 % (0.0-2.0); Eosinophils # (auto) 0 10 ^3/uL (0-0.8); Hematocrit 29.2 % (41.0-53.0); Hemoglobin 9.3 g/dL (13.5-17.5); Lymphocytes # (auto) 0.8 10 ^3/uL (0.4-5.4); Mean Corpuscular Hemoglobin 24.3 pg (28.0-32.0); Mean Corpuscular Hgb Conc. 31.7 g/dL (32.0-36.0); Mean Corpuscular Volume 76.7 fL (80.0-100.0); Monocytes # (auto) 0.7 10 ^3/uL (0-1.3); Monocytes % (auto) 5.1 % (0.0-12.0); Neutrophils # (auto) 12.4 10 ^3/uL (1.6-8.6); Neutrophils % (auto) 88.1 % (37.0-80.0); Red Blood Cells 3.81 10^6/uL (4.5-5.90); White Blood Cell 14.1 10^3/uL (4.4-10.8)
[2022-01-12 16:01] LABS: Red Cell Distribution Width 20.4 % (11.8-14.3)
[2022-01-12 16:18] LABS: Calcium 7.8 mg/dL (8.5-10.1)
[2022-01-12 17:00] VITALS: BP 106/61
[2022-01-12 22:00] VITALS: BP 112/51
[2022-01-13 05:00] VITALS: BP 114/59
[2022-01-13] MEDS: InsuLIN REG 1unit/0.01ml Soln (100units/ml) SC SCH ×4 (06:00→23:06)
[2022-01-13] MEDS: cefTAZidime 1 GM in SODIUM CHL 0.9% 50 ML IV SCH ×3 (06:03→21:54)
[2022-01-13] MEDS: AMPICILLIN INJ 1 GM in SODIUM CHL 0.9% 50 ML IV SCH ×5 (06:04→18:29)
[2022-01-13] MEDS: ACCU-CHEK COMFORT CURVE STRIP VI SCH ×4 (06:04→23:06)
[2022-01-13] MEDS: metroNIDAZOLE 500 MG TAB PO SCH ×3 (06:04→21:55)
[2022-01-13 06:52] LABS: BUN/Creatinine Ratio 23.5; Calcium 7.7 mg/dL (8.5-10.1); Potassium 3.9 mmol/L (3.5-5.1)
[2022-01-13 09:00] VITALS: BP 111/50
[2022-01-13] MEDS: FUROSEMIDE 20 MG/2 ML VIAL IV SCH ×2 (10:07→21:54)
[2022-01-13] MEDS: levoFLOXacin 750MG 150 ML IV SCH (10:07)
[2022-01-13] MEDS: POTASSIUM CHL 20 Meq TABLET PO SCH ×2 (10:08→21:55)
[2022-01-13] MEDS: FLORASTOR (S. BOULARDII) 250 MG CAP PO SCH (10:08)
[2022-01-13] MEDS: AMIODARONE HCL 200 MG TAB PO SCH ×2 (10:08→21:55)
[2022-01-13] MEDS: PANTOPRAZOLE 40 MG TAB PO SCH (10:08)
[2022-01-13] MEDS: DIGOXIN 0.125 MG TAB PO SCH (10:09)
[2022-01-13] MEDS: FLUCONAZOLE 100 MG TAB PO SCH (10:10)
[2022-01-13] MEDS: SODIUM CHLOR 0.9% PF (SALINE LOCK) 10ML VIAL/SYR IV SCH ×2 (10:10→21:55)
[2022-01-13] MEDS: INSULIN LANTUS (GLARGINE) 1 /0.01ml (100units/ml) SC SCH ×2 (10:11→23:10)
[2022-01-13 13:00] VITALS: BP 113/61
[2022-01-13 17:00] VITALS: BP 115/60
[2022-01-13 22:00] VITALS: BP 105/64
[2022-01-14] MEDS: AMPICILLIN INJ 1 GM in SODIUM CHL 0.9% 50 ML IV SCH ×5 (00:16→23:36)
[2022-01-14 05:10] VITALS: BP 112/61
[2022-01-14] MEDS: InsuLIN REG 1unit/0.01ml Soln (100units/ml) SC SCH ×4 (06:00→23:37)
[2022-01-14] MEDS: cefTAZidime 1 GM in SODIUM CHL 0.9% 50 ML IV SCH ×3 (06:05→21:51)
[2022-01-14] MEDS: metroNIDAZOLE 500 MG TAB PO SCH ×3 (06:06→21:52)
[2022-01-14] MEDS: ACCU-CHEK COMFORT CURVE STRIP VI SCH ×4 (06:06→23:35)
[2022-01-14 06:48] LABS: Albumin 2.2 g/dL (3.4-5.0); BUN/Creatinine Ratio 30.6; Basophils # (auto) 0.1 10 ^3/uL (0-0.2); Bilirubin, Total 0.9 mg/dL (0.2-1.0); Eosinophils # (auto) 0 10 ^3/uL (0-0.8); Eosinophils % (auto) 0.1 % (0.0-7.0); Hematocrit 31.1 % (41.0-53.0); Lymphocytes # (auto) 0.7 10 ^3/uL (0.4-5.4); Red Cell Distribution Width 19.9 % (11.8-14.3); Total Protein 5.9 g/dL (6.4-8.2)
[2022-01-14 06:49] LABS: Hemoglobin 9.9 g/dL (13.5-17.5); Mean Corpuscular Hemoglobin 24.3 pg (28.0-32.0); Mean Corpuscular Hgb Conc. 31.8 g/dL (32.0-36.0); Mean Corpuscular Volume 76.3 fL (80.0-100.0); Monocytes # (auto) 0.8 10 ^3/uL (0-1.3); Monocytes % (auto) 6.5 % (0.0-12.0); Neutrophils % (auto) 86.4 % (37.0-80.0); Nucleated Red Blood Cells % 0.1 %; Red Blood Cells 4.07 10^6/uL (4.5-5.90); White Blood Cell 11.5 10^3/uL (4.4-10.8)
[2022-01-14] MEDS: MORPHINE SULFATE INJ 2 MG/ml SYRG IV PRN (08:29)
[2022-01-14 08:30] VITALS: BP 123/69
[2022-01-14 09:22] VITALS: BP 147/80
[2022-01-14] MEDS: FUROSEMIDE 20 MG/2 ML VIAL IV SCH ×2 (10:46→21:51)
[2022-01-14] MEDS: SODIUM CHLOR 0.9% PF (SALINE LOCK) 10ML VIAL/SYR IV SCH ×2 (10:46→21:51)
[2022-01-14] MEDS: AMIODARONE HCL 200 MG TAB PO SCH ×2 (10:47→21:52)
[2022-01-14] MEDS: FLORASTOR (S. BOULARDII) 250 MG CAP PO SCH (10:48)
[2022-01-14] MEDS: FLUCONAZOLE 100 MG TAB PO SCH (10:48)
[2022-01-14] MEDS: POTASSIUM CHL 20 Meq TABLET PO SCH ×2 (10:49→21:52)
[2022-01-14] MEDS: DIGOXIN 0.125 MG TAB PO SCH (10:49)
[2022-01-14] MEDS: PANTOPRAZOLE 40 MG TAB PO SCH (10:50)
[2022-01-14] MEDS: levoFLOXacin 500 MG TAB PO SCH (10:50)
[2022-01-14] MEDS: INSULIN LANTUS (GLARGINE) 1 /0.01ml (100units/ml) SC SCH ×2 (10:53→23:37)
[2022-01-14 13:00] VITALS: BP 113/72
[2022-01-14 16:48] VITALS: BP 113/72
[2022-01-14 22:00] VITALS: BP 112/68
[2022-01-15 05:00] VITALS: BP 126/60
[2022-01-15] MEDS: InsuLIN REG 1unit/0.01ml Soln (100units/ml) SC SCH ×3 (06:00→18:07)
[2022-01-15] MEDS: cefTAZidime 1 GM in SODIUM CHL 0.9% 50 ML IV SCH ×3 (06:31→21:58)
[2022-01-15] MEDS: AMPICILLIN INJ 1 GM in SODIUM CHL 0.9% 50 ML IV SCH ×3 (06:31→18:33)
[2022-01-15] MEDS: ACCU-CHEK COMFORT CURVE STRIP VI SCH ×3 (06:32→18:08)
[2022-01-15] MEDS: metroNIDAZOLE 500 MG TAB PO SCH ×3 (06:32→21:56)
[2022-01-15] MEDS: MORPHINE SULFATE INJ 2 MG/ml SYRG IV PRN ×3 (08:45→20:46)
[2022-01-15 09:00] VITALS: BP 124/64
[2022-01-15] MEDS: PANTOPRAZOLE 40 MG TAB PO SCH (09:52)
[2022-01-15] MEDS: FUROSEMIDE 20 MG/2 ML VIAL IV SCH ×2 (09:52→21:58)
[2022-01-15] MEDS: levoFLOXacin 500 MG TAB PO SCH (09:52)
[2022-01-15] MEDS: DIGOXIN 0.125 MG TAB PO SCH (09:53)
[2022-01-15] MEDS: POTASSIUM CHL 20 Meq TABLET PO SCH ×2 (09:54→21:57)
[2022-01-15] MEDS: FLUCONAZOLE 100 MG TAB PO SCH (09:54)
[2022-01-15] MEDS: FLORASTOR (S. BOULARDII) 250 MG CAP PO SCH (09:55)
[2022-01-15] MEDS: AMIODARONE HCL 200 MG TAB PO SCH ×3 (10:00→22:02)
[2022-01-15] MEDS: INSULIN LANTUS (GLARGINE) 1 /0.01ml (100units/ml) SC SCH ×2 (10:06→22:50)
[2022-01-15] MEDS: SODIUM CHLOR 0.9% PF (SALINE LOCK) 10ML VIAL/SYR IV SCH ×2 (10:07→21:58)
[2022-01-15 13:00] VITALS: BP 118/68
[2022-01-15 17:00] VITALS: BP 122/82
[2022-01-15 22:00] VITALS: BP 121/61
[2022-01-16 05:00] VITALS: BP 100/64
[2022-01-16] MEDS: AMPICILLIN INJ 1 GM in SODIUM CHL 0.9% 50 ML IV SCH ×6 (05:41→23:58)
[2022-01-16] MEDS: InsuLIN REG 1unit/0.01ml Soln (100units/ml) SC SCH ×5 (05:53→23:59)
[2022-01-16] MEDS: ACCU-CHEK COMFORT CURVE STRIP VI SCH ×4 (05:54→17:46)
[2022-01-16] MEDS: metroNIDAZOLE 500 MG TAB PO SCH ×3 (05:54→22:14)
[2022-01-16] MEDS: cefTAZidime 1 GM in SODIUM CHL 0.9% 50 ML IV SCH ×3 (05:54→22:12)
[2022-01-16] MEDS: MORPHINE SULFATE INJ 2 MG/ml SYRG IV PRN ×2 (06:20→08:55)
[2022-01-16 07:20] LABS: Potassium 4.3 mmol/L (3.5-5.1)
[2022-01-16 07:22] LABS: Basophils # (auto) 0.1 10 ^3/uL (0-0.2); Eosinophils # (auto) 0 10 ^3/uL (0-0.8); Eosinophils % (auto) 0.2 % (0.0-7.0); Hematocrit 29.3 % (41.0-53.0); Hemoglobin 9.3 g/dL (13.5-17.5); Lymphocytes # (auto) 0.7 10 ^3/uL (0.4-5.4); Lymphocytes % (auto) 5.2 % (10.0-50.0); Mean Corpuscular Hemoglobin 24.5 pg (28.0-32.0); Mean Corpuscular Hgb Conc. 31.8 g/dL (32.0-36.0); Neutrophils # (auto) 12.2 10 ^3/uL (1.6-8.6); Neutrophils % (auto) 86.6 % (37.0-80.0); Red Cell Distribution Width 19.8 % (11.8-14.3)
[2022-01-16 07:24] LABS: BUN/Creatinine Ratio 43.3; Calcium 8.2 mg/dL (8.5-10.1)
[2022-01-16 09:07] VITALS: BP 114/67
[2022-01-16] MEDS: SODIUM CHLOR 0.9% PF (SALINE LOCK) 10ML VIAL/SYR IV SCH ×2 (09:07→22:13)
[2022-01-16] MEDS: FUROSEMIDE 20 MG/2 ML VIAL IV SCH ×2 (09:07→22:13)
[2022-01-16] MEDS: FLUCONAZOLE 100 MG TAB PO SCH (09:08)
[2022-01-16] MEDS: AMIODARONE HCL 200 MG TAB PO SCH ×2 (09:08→22:14)
[2022-01-16] MEDS: FLORASTOR (S. BOULARDII) 250 MG CAP PO SCH (09:09)
[2022-01-16] MEDS: POTASSIUM CHL 20 Meq TABLET PO SCH ×2 (09:09→22:14)
[2022-01-16] MEDS: PANTOPRAZOLE 40 MG TAB PO SCH (09:10)
[2022-01-16] MEDS: levoFLOXacin 500 MG TAB PO SCH (09:10)
[2022-01-16] MEDS: DIGOXIN 0.125 MG TAB PO SCH (09:10)
[2022-01-16] MEDS: INSULIN LANTUS (GLARGINE) 1 /0.01ml (100units/ml) SC SCH ×2 (09:38→22:17)
[2022-01-16 12:52] VITALS: BP 128/72
[2022-01-16 17:09] VITALS: BP 109/60
[2022-01-16] MEDS: HYDROcodone-ACET 10/325MG TAB PO PRN (18:05)
[2022-01-16 22:00] VITALS: BP 121/61
[2022-01-17 05:00] VITALS: BP 103/62
[2022-01-17] MEDS: HYDROcodone-ACET 10/325MG TAB PO PRN ×2 (05:43)
[2022-01-17] MEDS: cefTAZidime 1 GM in SODIUM CHL 0.9% 50 ML IV SCH ×3 (05:43→22:00)
[2022-01-17] MEDS: AMPICILLIN INJ 1 GM in SODIUM CHL 0.9% 50 ML IV SCH ×4 (05:43→23:38)
[2022-01-17] MEDS: metroNIDAZOLE 500 MG TAB PO SCH ×3 (05:43→22:00)
[2022-01-17] MEDS: InsuLIN REG 1unit/0.01ml Soln (100units/ml) SC SCH ×4 (05:44→23:39)
[2022-01-17] MEDS: ACCU-CHEK COMFORT CURVE STRIP VI SCH ×5 (05:44→23:38)
[2022-01-17 06:25] LABS: Basophils # (auto) 0.1 10 ^3/uL (0-0.2); Eosinophils # (auto) 0 10 ^3/uL (0-0.8); Monocytes # (auto) 0.9 10 ^3/uL (0-1.3); Neutrophils # (auto) 8.2 10 ^3/uL (1.6-8.6); Nucleated Red Blood Cells % 0.1 %; White Blood Cell 10.1 10^3/uL (4.4-10.8)
[2022-01-17 06:28] LABS: Basophils % (auto) 0.8 % (0.0-2.0); Eosinophils % (auto) 0.5 % (0.0-7.0); Hematocrit 28.2 % (41.0-53.0); Hemoglobin 9.2 g/dL (13.5-17.5); Lymphocytes # (auto) 0.9 10 ^3/uL (0.4-5.4); Lymphocytes % (auto) 8.9 % (10.0-50.0); Mean Corpuscular Hgb Conc. 32.5 g/dL (32.0-36.0); Monocytes % (auto) 8.9 % (0.0-12.0); Neutrophils % (auto) 80.9 % (37.0-80.0); Red Blood Cells 3.65 10^6/uL (4.5-5.90)
[2022-01-17 06:44] LABS: Calcium 8.7 mg/dL (8.5-10.1); Potassium 4.3 mmol/L (3.5-5.1)
[2022-01-17 06:51] LABS: Mean Corpuscular Hemoglobin 25.1 pg (28.0-32.0); Mean Corpuscular Volume 77.4 fL (80.0-100.0); Red Cell Distribution Width 20.1 % (11.8-14.3)
[2022-01-17 09:08] VITALS: BP 103/62
[2022-01-17] MEDS: FLORASTOR (S. BOULARDII) 250 MG CAP PO SCH (09:45)
[2022-01-17] MEDS: FLUCONAZOLE 100 MG TAB PO SCH (09:45)
[2022-01-17] MEDS: AMIODARONE HCL 200 MG TAB PO SCH ×2 (09:45→22:00)
[2022-01-17] MEDS: levoFLOXacin 500 MG TAB PO SCH (09:46)
[2022-01-17] MEDS: DIGOXIN 0.125 MG TAB PO SCH (09:46)
[2022-01-17] MEDS: PANTOPRAZOLE 40 MG TAB PO SCH (09:46)
[2022-01-17] MEDS: ENOXAPARIN SOD 40 MG/0.4 ML SYRINGE SC SCH (09:47)
[2022-01-17] MEDS: INSULIN LANTUS (GLARGINE) 1 /0.01ml (100units/ml) SC SCH ×2 (10:00→22:08)
[2022-01-17] MEDS: POTASSIUM CHL 20 Meq TABLET PO SCH (10:01)
[2022-01-17 12:57] VITALS: BP_SYST 102; BP_SYST 119; BP_DIAS 59; BP_DIAS 65
[2022-01-17 17:00] VITALS: BP 113/67
[2022-01-17] MEDS: SODIUM CHLOR 0.9% PF (SALINE LOCK) 10ML VIAL/SYR IV SCH ×2 (17:29→22:00)
[2022-01-17] MEDS: FUROSEMIDE 20 MG/2 ML VIAL IV SCH ×2 (17:29→22:00)
[2022-01-17] MEDS: Pro-Stat SF 30ml Vanilla PO SCH (17:30)
[2022-01-17 22:00] VITALS: BP 127/68
[2022-01-18 05:00] VITALS: BP 105/56
[2022-01-18] MEDS: cefTAZidime 1 GM in SODIUM CHL 0.9% 50 ML IV SCH ×3 (05:49→21:55)
[2022-01-18] MEDS: AMPICILLIN INJ 1 GM in SODIUM CHL 0.9% 50 ML IV SCH ×3 (05:50→18:50)
[2022-01-18] MEDS: InsuLIN REG 1unit/0.01ml Soln (100units/ml) SC SCH ×3 (05:50→17:51)
[2022-01-18] MEDS: ACCU-CHEK COMFORT CURVE STRIP VI SCH ×3 (05:50→17:51)
[2022-01-18] MEDS: metroNIDAZOLE 500 MG TAB PO SCH ×3 (05:50→21:54)
[2022-01-18] MEDS: HYDROcodone-ACET 10/325MG TAB PO PRN ×2 (05:57→19:39)
[2022-01-18 06:07] LABS: Basophils # (auto) 0.1 10 ^3/uL (0-0.2); Basophils % (auto) 0.8 % (0.0-2.0); Eosinophils # (auto) 0 10 ^3/uL (0-0.8); Eosinophils % (auto) 0.4 % (0.0-7.0); Hematocrit 27.9 % (41.0-53.0); Hemoglobin 8.7 g/dL (13.5-17.5); Lymphocytes # (auto) 0.6 10 ^3/uL (0.4-5.4); Lymphocytes % (auto) 7.3 % (10.0-50.0); Mean Corpuscular Hemoglobin 24.3 pg (28.0-32.0); Mean Corpuscular Hgb Conc. 31.2 g/dL (32.0-36.0); Monocytes # (auto) 0.6 10 ^3/uL (0-1.3); Monocytes % (auto) 7.1 % (0.0-12.0); Neutrophils # (auto) 7.3 10 ^3/uL (1.6-8.6); Neutrophils % (auto) 84.4 % (37.0-80.0); Red Blood Cells 3.57 10^6/uL (4.5-5.90); White Blood Cell 8.6 10^3/uL (4.4-10.8)
[2022-01-18 06:10] LABS: Red Cell Distribution Width 20.3 % (11.8-14.3)
[2022-01-18 06:16] LABS: BUN/Creatinine Ratio 33.3; Calcium 8.6 mg/dL (8.5-10.1); Potassium 4.3 mmol/L (3.5-5.1)
[2022-01-18 09:00] VITALS: BP 101/65
[2022-01-18] MEDS: Pro-Stat SF 30ml Vanilla PO SCH ×2 (09:28→17:51)
[2022-01-18] MEDS: PANTOPRAZOLE 40 MG TAB PO SCH (09:28)
[2022-01-18] MEDS: levoFLOXacin 500 MG TAB PO SCH (09:29)
[2022-01-18] MEDS: FUROSEMIDE 20 MG/2 ML VIAL IV SCH (09:30)
[2022-01-18] MEDS: SODIUM CHLOR 0.9% PF (SALINE LOCK) 10ML VIAL/SYR IV SCH ×2 (09:30→21:55)
[2022-01-18] MEDS: DIGOXIN 0.125 MG TAB PO SCH (09:30)
[2022-01-18] MEDS: AMIODARONE HCL 200 MG TAB PO SCH ×2 (09:31→21:55)
[2022-01-18] MEDS: FLUCONAZOLE 100 MG TAB PO SCH (09:31)
[2022-01-18] MEDS: FLORASTOR (S. BOULARDII) 250 MG CAP PO SCH (09:31)
[2022-01-18] MEDS: ENOXAPARIN SOD 40 MG/0.4 ML SYRINGE SC SCH (09:31)
[2022-01-18] MEDS: INSULIN LANTUS (GLARGINE) 1 /0.01ml (100units/ml) SC SCH ×2 (09:39→21:53)
[2022-01-18 14:00] VITALS: BP 110/65
[2022-01-18 17:00] VITALS: BP 107/61
[2022-01-18 22:00] VITALS: BP 117/56
[2022-01-19] MEDS: InsuLIN REG 1unit/0.01ml Soln (100units/ml) SC SCH ×4 (00:01→17:50)
[2022-01-19 05:00] VITALS: BP 89/62
[2022-01-19] MEDS: AMPICILLIN INJ 1 GM in SODIUM CHL 0.9% 50 ML IV SCH ×3 (05:46)
[2022-01-19] MEDS: cefTAZidime 1 GM in SODIUM CHL 0.9% 50 ML IV SCH ×2 (05:46→16:49)
[2022-01-19] MEDS: metroNIDAZOLE 500 MG TAB PO SCH ×2 (05:47→16:49)
[2022-01-19] MEDS: HYDROcodone-ACET 10/325MG TAB PO PRN ×2 (05:48→16:50)
[2022-01-19] MEDS: ACCU-CHEK COMFORT CURVE STRIP VI SCH ×4 (06:00→17:51)
[2022-01-19] MEDS ORDERED: FUROSEMIDE 20 MG/2 ML VIAL IV SCH (07:00)
[2022-01-19 08:55] VITALS: BP 100/50
[2022-01-19] MEDS: Pro-Stat SF 30ml Vanilla PO SCH ×2 (09:43→17:50)
[2022-01-19] MEDS: INSULIN LANTUS (GLARGINE) 1 /0.01ml (100units/ml) SC SCH (09:49)
[2022-01-19] MEDS: FLUCONAZOLE 100 MG TAB PO SCH (09:52)
[2022-01-19] MEDS: levoFLOXacin 500 MG TAB PO SCH (09:52)
[2022-01-19] MEDS: FLORASTOR (S. BOULARDII) 250 MG CAP PO SCH (09:52)
[2022-01-19] MEDS: ENOXAPARIN SOD 40 MG/0.4 ML SYRINGE SC SCH (09:52)
[2022-01-19] MEDS: PANTOPRAZOLE 40 MG TAB PO SCH (09:52)
[2022-01-19] MEDS: SODIUM CHLOR 0.9% PF (SALINE LOCK) 10ML VIAL/SYR IV SCH (09:53)
[2022-01-19] MEDS: AMIODARONE HCL 200 MG TAB PO SCH (09:53)
[2022-01-19] MEDS: DIGOXIN 0.125 MG TAB PO SCH (09:54)
[2022-01-19] MEDS ORDERED: POTASSIUM CHL 10 Meq TABLET PO SCH (10:00)
[2022-01-19] MEDS: MORPHINE SULFATE INJ 2 MG/ml SYRG IV PRN (10:01)
[2022-01-19 12:50] VITALS: BP 99/50
[2022-01-19 16:55] VITALS: BP 112/58
[2022-01-19] MEDS ORDERED: AMOXICILLIN/CLAVUL 875 MG TAB PO SCH (22:00)
== END 2022-01-19 19:21 | DRG 871 ==
LOC: EDBD 19:24 → ER 19:24 → TELE 21:51 → ICU WEST 23:46 → TELE-CENTR 01-08 08:23
PROVIDERS: ADMIT Nurse Practitioner; ATTEND Internal Medicine
PROC: 5A09457 Assistance with Respiratory Ventilation, 24-96 Consecutive Hours, Continuous Positive Airway Pressure (ICD-10-PCS; 2021-12-29)
PROC: 02HV33Z Insertion of Infusion Device into Superior Vena Cava, Percutaneous Approach (ICD-10-PCS; principal; 2021-12-30)
PROC: B548ZZA Ultrasonography of Superior Vena Cava, Guidance (ICD-10-PCS; 2021-12-30)
PROC: 5A09357 Assistance with Respiratory Ventilation, Less than 24 Consecutive Hours, Continuous Positive Airway Pressure (ICD-10-PCS; 2022-01-03)
PROC: 5A09357 Assistance with Respiratory Ventilation, Less than 24 Consecutive Hours, Continuous Positive Airway Pressure (ICD-10-PCS; 2022-01-04)
PROC: 5A09357 Assistance with Respiratory Ventilation, Less than 24 Consecutive Hours, Continuous Positive Airway Pressure (ICD-10-PCS; 2022-01-05)
PROC: 5A09357 Assistance with Respiratory Ventilation, Less than 24 Consecutive Hours, Continuous Positive Airway Pressure (ICD-10-PCS; 2022-01-06)
PROC: 5A09357 Assistance with Respiratory Ventilation, Less than 24 Consecutive Hours, Continuous Positive Airway Pressure (ICD-10-PCS; 2022-01-07)
PROC: 5A09357 Assistance with Respiratory Ventilation, Less than 24 Consecutive Hours, Continuous Positive Airway Pressure (ICD-10-PCS; 2022-01-08)
PROC: 5A09357 Assistance with Respiratory Ventilation, Less than 24 Consecutive Hours, Continuous Positive Airway Pressure (ICD-10-PCS; 2022-01-09)
PROC: 5A09357 Assistance with Respiratory Ventilation, Less than 24 Consecutive Hours, Continuous Positive Airway Pressure (ICD-10-PCS; 2022-01-10)
PROC: 5A09357 Assistance with Respiratory Ventilation, Less than 24 Consecutive Hours, Continuous Positive Airway Pressure (ICD-10-PCS; 2022-01-11)
PROC: 5A09357 Assistance with Respiratory Ventilation, Less than 24 Consecutive Hours, Continuous Positive Airway Pressure (ICD-10-PCS; 2022-01-12)
PROC: 5A09357 Assistance with Respiratory Ventilation, Less than 24 Consecutive Hours, Continuous Positive Airway Pressure (ICD-10-PCS; 2022-01-13)
PROC: 5A09357 Assistance with Respiratory Ventilation, Less than 24 Consecutive Hours, Continuous Positive Airway Pressure (ICD-10-PCS; 2022-01-14)
PROC: 5A09357 Assistance with Respiratory Ventilation, Less than 24 Consecutive Hours, Continuous Positive Airway Pressure (ICD-10-PCS; 2022-01-15)
PROC: 5A09357 Assistance with Respiratory Ventilation, Less than 24 Consecutive Hours, Continuous Positive Airway Pressure (ICD-10-PCS; 2022-01-16)
PROC: 5A09357 Assistance with Respiratory Ventilation, Less than 24 Consecutive Hours, Continuous Positive Airway Pressure (ICD-10-PCS; 2022-01-17)
PROC: 5A09357 Assistance with Respiratory Ventilation, Less than 24 Consecutive Hours, Continuous Positive Airway Pressure (ICD-10-PCS; 2022-01-18)
PROC: 5A09357 Assistance with Respiratory Ventilation, Less than 24 Consecutive Hours, Continuous Positive Airway Pressure (ICD-10-PCS; 2022-01-19)
DX: A41.52 Sepsis due to Pseudomonas (principal); L89.153 Pressure ulcer of sacral region, stage 3; L89.323 Pressure ulcer of left buttock, stage 3; G93.41 Metabolic encephalopathy; R65.21 Severe sepsis with septic shock; N17.0 Acute kidney failure with tubular necrosis; I50.41 Acute combined systolic (congestive) and diastolic (congestive) heart failure; J96.21 Acute and chronic respiratory failure with hypoxia; J96.22 Acute and chronic respiratory failure with hypercapnia; J15.1 Pneumonia due to Pseudomonas; E44.0 Moderate protein-calorie malnutrition; I13.0 Hypertensive heart and chronic kidney disease with heart failure and stage 1 through stage 4 chronic kidney disease, or unspecified chronic kidney disease; Z68.43 Body mass index [BMI] 50.0-59.9, adult; N39.0 Urinary tract infection, site not specified; J44.1 Chronic obstructive pulmonary disease with (acute) exacerbation; J44.0 Chronic obstructive pulmonary disease with (acute) lower respiratory infection; A41.81 Sepsis due to Enterococcus; Z20.822 Contact with and (suspected) exposure to COVID-19; E11.22 Type 2 diabetes mellitus with diabetic chronic kidney disease; E66.01 Morbid (severe) obesity due to excess calories; I48.91 Unspecified atrial fibrillation; N18.9 Chronic kidney disease, unspecified; E87.5 Hyperkalemia; R80.9 Proteinuria, unspecified; R31.9 Hematuria, unspecified; D69.6 Thrombocytopenia, unspecified; G47.30 Sleep apnea, unspecified; Z86.711 Personal history of pulmonary embolism; Z86.718 Personal history of other venous thrombosis and embolism; Z66 Do not resuscitate; Z80.0 Family history of malignant neoplasm of digestive organs; Z80.1 Family history of malignant neoplasm of trachea, bronchus and lung; Z91.14 Patient's other noncompliance with medication regimen; Z88.1 Allergy status to other antibiotic agents
CPT/HCPCS: 36415; 36569; 36600; 71045; 76775; 80048; 80053; 80162; 81001; 82570; 82805; 82962; 83036; 83605; 83615; 83690; 83735; 83880; 84156; 84484; 85007; 85025; 85027; 85379; 85610; 85730; 87040; 87077; 87081; 87086; 87088; 87186; 87205; 87493; 93005; 93306; 93926; 94003; 94644; 94660; 96365; 96366; 96367; 96368; 96375; 97110; 97163; 97530; 99291; C9113; G0378; J0171; J0696; J1100; J1450; J1815; J1956; J2185; J2405; J3490; J7060; P9047

== ENCOUNTER 2022-11-24 10:20 | Emergency (ER) | payer MEDICARE, MEDICAID ==
[~2022-11-24] VITALS: Ht 177.8 cm; Wt 150.0 kg
[~2022-11-24 10:20] MED LIST: ALLO100T PO; ATOR40TA52 PO; FERR-20 PO; FOLI1TAB6 PO; IPRA0.00 NEB; LEVO50TA7 PO; LOSA-69 PO; PANT40TA2 PO
[2022-11-24 12:02] LABS: Urine Bacteria NONE SEEN /hpf (None Seen); Urine Blood 1+ /uL (Negative); Urine Specific Gravity 1.008 (1.001-1.035); Urine WBC 6 /hpf (0 - 3)
[2022-11-24 12:23] LABS: Basophils # (auto) 0.1 10 ^3/uL (0-0.2); Basophils % (auto) 0.8 % (0.0-2.0); Eosinophils # (auto) 0.2 10 ^3/uL (0-0.8); Eosinophils % (auto) 1.9 % (0.0-7.0); Hematocrit 45.6 % (41.0-53.0); Hemoglobin 15.1 g/dL (13.5-17.5); Lymphocytes # (auto) 0.8 10 ^3/uL (0.4-5.4); Lymphocytes % (auto) 8.1 % (10.0-50.0); Mean Corpuscular Hgb Conc. 33.2 g/dL (32.0-36.0); Mean Corpuscular Volume 81.2 fL (80.0-100.0); Monocytes # (auto) 0.8 10 ^3/uL (0-1.3); Monocytes % (auto) 8.2 % (0.0-12.0); Neutrophils # (auto) 8.2 10 ^3/uL (1.6-8.6); Nucleated Red Blood Cells % 0.3 %; Red Blood Cells 5.61 10^6/uL (4.5-5.90); Red Cell Distribution Width 16.6 % (11.8-14.3); White Blood Cell 10.1 10^3/uL (4.4-10.8)
[2022-11-24 12:37] LABS: Albumin 3.5 g/dL (3.4-5.0); BUN/Creatinine Ratio 12.5 (10.0-20.0); Calcium 9.3 mg/dL (8.5-10.1); Potassium 4.9 mmol/L (3.5-5.1)
[2022-11-24 12:40] LABS: Bilirubin, Total 1.3 mg/dL (0.2-1.0); Total Protein 7.4 g/dL (6.4-8.2)
[2022-11-24] MEDS ORDERED: ceFAZolin 1GM/50ML 50 ML IV ONE (16:15)
[2022-11-24] MEDS ORDERED: cefTRIAXone 1GM/50ML D5W 50 ML IV ONE (20:30)
[2022-11-25] MEDS ORDERED: CLIN300C8 PO (00:44)
[2022-11-25] MEDS ORDERED: CEPH-510 PO (00:44)
[2022-11-25 01:33] VITALS: BP 116/59
== END 2022-11-25 01:35 | disposition home or self-care (01) ==
LOC: ER 10:20
DX: L03.314 Cellulitis of groin (principal); A49.01 Methicillin susceptible Staphylococcus aureus infection, unspecified site; J44.9 Chronic obstructive pulmonary disease, unspecified; I11.0 Hypertensive heart disease with heart failure; I50.9 Heart failure, unspecified; Z88.1 Allergy status to other antibiotic agents; Z20.822 Contact with and (suspected) exposure to COVID-19
CPT/HCPCS: 36415; 76881; 80053; 81001; 82962; 85025; 87040; 87426; 96365; 96367; 99285; J0690; J0696

== ENCOUNTER → 2023-02-23 | Outpatient (CLI) | payer MEDICARE, MEDICAID ==
[~2023-02-23] MED LIST changes: +ALBUTEROL SULF 2.5 MG/0.5ML(0.5%) NEB SOLN ONE; +CEPH-510 PO; +CLIN300C70 PO; -FERR-20 PO; +FERR325T24 PO; +FOLI-119 PO; -FOLI1TAB6 PO; -LOSA-69 PO; +LOSA50TA46 PO
== END | disposition home or self-care (01) ==
LOC: RT 10:39
PROVIDERS: ATTEND Internal Medicine Pulmonary Disease
DX: J96.22 Acute and chronic respiratory failure with hypercapnia (principal); J44.9 Chronic obstructive pulmonary disease, unspecified
CPT/HCPCS: 94060; 94727; 94729

== ENCOUNTER → 2023-06-21 | Outpatient (CLI) | payer MEDICARE, MEDICAID ==
[~2023-06-21] MED LIST changes: -ALBUTEROL SULF 2.5 MG/0.5ML(0.5%) NEB SOLN ONE
== END | disposition home or self-care (01) ==
LOC: RT 12:30
PROVIDERS: ATTEND Internal Medicine Pulmonary Disease
DX: R06.09 Other forms of dyspnea (principal)
CPT/HCPCS: 94618

== ENCOUNTER 2023-11-05 14:56 | Inpatient (IN) | payer MEDICARE, MEDICAID ==
[~2023-11-05] VITALS: Ht 177.8 cm; Wt 140.4 kg
[~2023-11-05 14:56] MED LIST changes: +LEVO25TA6 PO
[2023-11-05 16:02] LABS: Basophils # (auto) 0 10 ^3/uL (0-0.2); Basophils % (auto) 0.2 % (0.0-2.0); Eosinophils # (auto) 0.1 10 ^3/uL (0-0.8); Eosinophils % (auto) 0.6 % (0.0-7.0); Hematocrit 48.9 % (41.0-53.0); Lymphocytes # (auto) 0.7 10 ^3/uL (0.4-5.4); Lymphocytes % (auto) 7.6 % (10.0-50.0); Mean Corpuscular Hemoglobin 27.9 pg (28.0-32.0); Mean Corpuscular Hgb Conc. 32.8 g/dL (32.0-36.0); Mean Corpuscular Volume 85.2 fL (80.0-100.0); Monocytes % (auto) 10.9 % (0.0-12.0); Neutrophils # (auto) 7.6 10 ^3/uL (1.6-8.6); Neutrophils % (auto) 80.7 % (37.0-80.0); Nucleated Red Blood Cells % 0.1 %; Red Blood Cells 5.74 10^6/uL (4.5-5.90); Red Cell Distribution Width 15.1 % (11.8-14.3); White Blood Cell 9.4 10^3/uL (4.4-10.8)
[2023-11-05 16:06] LABS: Urine Bacteria FEW /hpf (None Seen); Urine Blood 2+ /uL (Negative); Urine Clarity HAZY (Clear); Urine Color Yellow (Yellow); Urine Protein, UAD 1+ (Negative); Urine Specific Gravity 1.023 (1.001-1.035); Urine WBC 48 /hpf (0 - 3)
[2023-11-05 16:18] LABS: Alanine Aminotransferase 16 U/L (7-40); Albumin 4.5 g/dL (3.2-4.8); Alkaline Phosphatase 96 U/L (46-116); Anion Gap 6 (5-15); Aspartate Aminotransferase 14 U/L (13-40); BUN/Creatinine Ratio 14.3 (10.0-20.0); Bilirubin, Total 2.1 mg/dL (0.2-1.0); Blood Urea Nitrogen 11 mg/dL (9-23); Calcium 10.1 mg/dL (8.7-10.4); Carbon Dioxide 30 mmol/L (20-30); Chloride 102 mmol/L (98-107); Glucose 115 mg/dL (74-106); Lipase 24 U/L (12-53); Potassium 4.3 mmol/L (3.5-5.1); Sodium 138 mmol/L (136-145); Total Protein 6.7 g/dL (5.7-8.2)
[2023-11-05] MEDS: DICYCLOMINE HCL (10MG/ML) 2 ML AMPULE IM ONE (17:18)
[2023-11-05] MEDS ORDERED: cefTRIAXone 2GM/50ML D5W 50 ML IV ONE (19:30)
[2023-11-05] MEDS ORDERED: ONDANSETRON HCL 4 MG/2 ML VIAL IV PRN (21:15)
[2023-11-05] MEDS ORDERED: ACETAMINOPHEN 325 MG TAB PO PRN (21:15)
[2023-11-05] MEDS ORDERED: MORPHINE SULFATE INJ 2 MG/ml SYRG IV PRN ×2 (21:15→23:45)
[2023-11-05] MEDS ORDERED: DOCUSATE SOD 100 MG CAP PO PRN (21:15)
[2023-11-05] MEDS ORDERED: HYDROcodone-ACET 5/325MG TAB PO PRN (21:15)
[2023-11-05] MEDS: SODIUM CHLOR 0.9% PF (SALINE LOCK) 10ML VIAL/SYR IV SCH (21:52)
[2023-11-05] MEDS: levoFLOXacin 750MG 150 ML IV ONE (21:52)
[2023-11-05] MEDS ORDERED: NITROGLYCERIN 0.4 MG SL TAB SL PRN (23:45)
[2023-11-06] VITALS (17 sets, daily range): BP systolic 126–144; BP diastolic 48–128; PULSE 64–95; RESP 12–27; TEMP 97.9–99.3; O2SAT 0–99
[2023-11-06] MEDS ORDERED: DEXTROSE (50%) 50ML SYRG IV PRN (02:00)
[2023-11-06] MEDS: SODIUM CHLORIDE 0.9% 1,000 ML IV SCH (03:24)
[2023-11-06] MEDS: InsuLIN REG 1unit/0.01ml Soln (100units/ml) SC SCH (05:43)
[2023-11-06] MEDS: LEVOTHYROXINE SODIUM 50 MCG TAB PO SCH (05:43)
[2023-11-06] MEDS: ACCU-CHEK COMFORT CURVE STRIP VI SCH (05:43)
[2023-11-06 07:36] LABS: Base Excess 2.7 mmol/L (-2.0-2.0)
[2023-11-06] MEDS ORDERED: cefTRIAXone 1GM/50ML D5W 50 ML IV SCH (09:00)
[2023-11-06] MEDS: cefTRIAXone 1GM/50ML D5W 50 ML IV SCH (09:00)
[2023-11-06 09:05] LABS: Hematocrit 46.5 % (41.0-53.0); Hemoglobin 15.2 g/dL (13.5-17.5); Mean Corpuscular Hgb Conc. 32.7 g/dL (32.0-36.0); Mean Corpuscular Volume 85.5 fL (80.0-100.0); Red Blood Cells 5.44 10^6/uL (4.5-5.90); Red Cell Distribution Width 15.5 % (11.8-14.3); White Blood Cell 5.3 10^3/uL (4.4-10.8)
[2023-11-06 09:12] LABS: Basophils % (manual) 0 (0.0-2.0); Blast Cells 0; Metamyelocytes % 0; Myelocytes % 0; Promyelocytes % 0; Reactive Lymphocytes 0
[2023-11-06 09:32] LABS: Alanine Aminotransferase 13 U/L (7-40); Alkaline Phosphatase 85 U/L (46-116); Anion Gap 4 (5-15); BUN/Creatinine Ratio 14.3 (10.0-20.0); Blood Urea Nitrogen 10 mg/dL (9-23); Calcium 9.6 mg/dL (8.5-10.1); Carbon Dioxide 31 mmol/L (20-30); Chloride 104 mmol/L (98-107); Glucose 107 mg/dL (74-106); Potassium 3.9 mmol/L (3.5-5.1); Sodium 139 mmol/L (136-145)
[2023-11-06 09:33] LABS: Albumin 4.4 g/dL (3.2-4.8); Aspartate Aminotransferase 18 U/L (13-40); Bilirubin, Total 1.9 mg/dL (0.2-1.0)
[2023-11-06 09:34] LABS: Total Protein 6.6 g/dL (5.7-8.2)
[2023-11-06 09:37] LABS: Band Neutrophils % (manual) 8; Eosinophils % (manual) 1 (0-7); Lymphocytes % (manual) 11 (10.0-50.0); Monocytes % (manual) 22 (0-12)
[2023-11-06 09:38] LABS: Anisocytosis Slight; Platelet Estimate Adequate
[2023-11-06] MEDS: PANTOPRAZOLE 40 MG/10 ML VIAL INJ IV SCH (13:04)
[2023-11-07] VITALS (13 sets, daily range): BP systolic 95–137; BP diastolic 43–88; PULSE 55–79; RESP 18–21; TEMP 97.5–98.6; O2SAT 92–100
[2023-11-07 05:30] LABS: Basophils # (auto) 0 10 ^3/uL (0-0.2); Basophils % (auto) 0.4 % (0.0-2.0); Eosinophils # (auto) 0.2 10 ^3/uL (0-0.8); Eosinophils % (auto) 4.8 % (0.0-7.0); Hematocrit 43.8 % (41.0-53.0); Hemoglobin 14.2 g/dL (13.5-17.5); Lymphocytes % (auto) 18.9 % (10.0-50.0); Mean Corpuscular Hemoglobin 28.2 pg (28.0-32.0); Mean Corpuscular Hgb Conc. 32.4 g/dL (32.0-36.0); Monocytes # (auto) 0.7 10 ^3/uL (0-1.3); Monocytes % (auto) 13.2 % (0.0-12.0); Neutrophils # (auto) 3.2 10 ^3/uL (1.6-8.6); Neutrophils % (auto) 62.7 % (37.0-80.0); Nucleated Red Blood Cells % 0.2 %; Red Blood Cells 5.03 10^6/uL (4.5-5.90); Red Cell Distribution Width 14.9 % (11.8-14.3); White Blood Cell 5.2 10^3/uL (4.4-10.8)
[2023-11-07 05:46] LABS: Alanine Aminotransferase 11 U/L (7-40); Albumin 3.9 g/dL (3.2-4.8); Alkaline Phosphatase 68 U/L (46-116); Anion Gap 4 (5-15); Aspartate Aminotransferase 13 U/L (13-40); BUN/Creatinine Ratio 12.3 (10.0-20.0); Blood Urea Nitrogen 9 mg/dL (9-23); Carbon Dioxide 30 mmol/L (20-30); Chloride 107 mmol/L (98-107); Glucose 90 mg/dL (74-106); Magnesium 1.9 mg/dL (1.6-2.6); Potassium 3.9 mmol/L (3.5-5.1); Sodium 141 mmol/L (136-145)
[2023-11-07 05:47] LABS: Bilirubin, Total 1.5 mg/dL (0.2-1.0); Total Protein 6.1 g/dL (5.7-8.2)
[2023-11-07] MEDS: InsuLIN REG 1unit/0.01ml Soln (100units/ml) SC SCH (08:00)
[2023-11-08] VITALS (13 sets, daily range): BP systolic 128–137; BP diastolic 65–76; PULSE 57–81; RESP 18–20; TEMP 97.5–98.3; O2SAT 94–99
[2023-11-08] MEDS: InsuLIN REG 1unit/0.01ml Soln (100units/ml) SC SCH
[2023-11-08] MEDS: ACCU-CHEK COMFORT CURVE STRIP VI SCH
[2023-11-08 07:16] LABS: Alanine Aminotransferase 10 U/L (7-40); Albumin 3.7 g/dL (3.2-4.8); Alkaline Phosphatase 67 U/L (46-116); Anion Gap 7 (5-15); Aspartate Aminotransferase 15 U/L (13-40); BUN/Creatinine Ratio 12.7 (10.0-20.0); Bilirubin, Total 1.2 mg/dL (0.2-1.0); Blood Urea Nitrogen 8 mg/dL (9-23); Calcium 8.7 mg/dL (8.7-10.4); Carbon Dioxide 26 mmol/L (20-30); Chloride 107 mmol/L (98-107); Glucose 81 mg/dL (74-106); Magnesium 1.8 mg/dL (1.6-2.6); Potassium 3.6 mmol/L (3.5-5.1); Sodium 140 mmol/L (136-145)
[2023-11-09] VITALS (9 sets, daily range): BP systolic 109–140; BP diastolic 42–71; PULSE 55–84; RESP 16–20; TEMP 97.9–98.8; O2SAT 96–100
[2023-11-09 07:25] LABS: Anion Gap 3 (5-15); BUN/Creatinine Ratio 6.4 (10.0-20.0); Blood Urea Nitrogen < 5 mg/dL (9-23); Carbon Dioxide 34 mmol/L (20-30); Chloride 106 mmol/L (98-107); Glucose 105 mg/dL (74-106); Magnesium 1.9 mg/dL (1.6-2.6); Sodium 143 mmol/L (136-145)
== END 2023-11-09 14:50 | disposition home or self-care (01) | DRG 394 ==
LOC: ER 14:56 → TELE 23:40 → TELE-CENTR 23:40
PROVIDERS: ADMIT Nurse Practitioner Family; ATTEND Internal Medicine Geriatric Medicine
PROC: 5A09357 Assistance with Respiratory Ventilation, Less than 24 Consecutive Hours, Continuous Positive Airway Pressure (ICD-10-PCS; principal; 2023-11-06)
PROC: 0D9670Z Drainage of Stomach with Drainage Device, Via Natural or Artificial Opening (ICD-10-PCS; 2023-11-06)
PROC: 5A09357 Assistance with Respiratory Ventilation, Less than 24 Consecutive Hours, Continuous Positive Airway Pressure (ICD-10-PCS; 2023-11-07)
PROC: 5A09357 Assistance with Respiratory Ventilation, Less than 24 Consecutive Hours, Continuous Positive Airway Pressure (ICD-10-PCS; 2023-11-08)
PROC: 5A09357 Assistance with Respiratory Ventilation, Less than 24 Consecutive Hours, Continuous Positive Airway Pressure (ICD-10-PCS; 2023-11-09)
DX: K42.0 Umbilical hernia with obstruction, without gangrene (principal); J96.10 Chronic respiratory failure, unspecified whether with hypoxia or hypercapnia; N39.0 Urinary tract infection, site not specified; K56.51 Intestinal adhesions [bands], with partial obstruction; Z68.41 Body mass index [BMI] 40.0-44.9, adult; E03.9 Hypothyroidism, unspecified; E66.01 Morbid (severe) obesity due to excess calories; G47.33 Obstructive sleep apnea (adult) (pediatric); I50.9 Heart failure, unspecified; J44.9 Chronic obstructive pulmonary disease, unspecified; Z88.1 Allergy status to other antibiotic agents
CPT/HCPCS: 36415; 36600; 71045; 74176; 80048; 80053; 81001; 82805; 82962; 83605; 83690; 83735; 83880; 84484; 85007; 85025; 85027; 87081; 87086; 93005; 93306; 94660; 96365; 96372; 97110; 97116; 97163; 97530; C9113; G0378; J1956

== ENCOUNTER 2025-01-02 17:30 | Inpatient (IN) | payer MEDICARE, MEDICAID ==
[~2025-01-02] VITALS: Ht 177.8 cm; Wt 143.0 kg
[2025-01-02] MEDS: SODIUM CHLORIDE 0.9% 1,000 ML IV ONE (02:15)
[~2025-01-02 17:30] MED LIST changes: -CEPH-510 PO; -CLIN300C70 PO; -LEVO50TA7 PO; +LOSA-534 PO; -LOSA50TA46 PO
[2025-01-02 17:59] LABS: Basophils # (auto) 0 10 ^3/uL (0-0.2); Basophils % (auto) 0.4 % (0.0-2.0); Eosinophils # (auto) 0.1 10 ^3/uL (0-0.8); Eosinophils % (auto) 2.9 % (0.0-7.0); Hematocrit 47.2 % (41.0-53.0); Lymphocytes # (auto) 0.8 10 ^3/uL (0.4-5.4); Lymphocytes % (auto) 18.2 % (10.0-50.0); Mean Corpuscular Hemoglobin 27.3 pg (28.0-32.0); Mean Corpuscular Hgb Conc. 33.9 g/dL (32.0-36.0); Mean Corpuscular Volume 80.4 fL (80.0-100.0); Monocytes # (auto) 0.8 10 ^3/uL (0-1.3); Monocytes % (auto) 16.9 % (0.0-12.0); Neutrophils # (auto) 2.8 10 ^3/uL (1.6-8.6); Neutrophils % (auto) 61.6 % (37.0-80.0); Nucleated Red Blood Cells % 0.5 %; Platelet Count (auto) 147 10^3/uL (140-450); Red Blood Cells 5.87 10^6/uL (4.5-5.90); Red Cell Distribution Width 19.8 % (11.8-14.3); White Blood Cell 4.6 10^3/uL (4.4-10.8)
--- NOTE | 2025-01-02 18:02 | ED.PDOC ---
GI ASSESSMENT HPI Comments 64y M who presents to the ED for chief complaint of abdominal pain - pt states he has been having periumbilical abdominal pain for the past 3 days - pt states the pain is diffusely located, rating the pain 5/10, with no associated exacerbating or relieving factors - pt has been having associated nausea and diarrhea but otherwise denies fever, cough, chills, dysuria, or vomiting - pt states he has also noted to have blood in his urine for the past 1 week - pt in the ED, otherwise denies any other symptoms - pt states he has also noted pain from his inguinal hernia PMH: blood clots, HTN, HLD, DM, COPD, CHF PSH: hernia, SBO Meds: eliquis, lasix, statin allergies: vancomycin, Cipro ARATA: PERIUMBILICAL AP. HPI: Poor Historian. REVIEW OF SYSTEMS: CONSTITUTIONAL: Denies acute: fever, diaphoresis, chills, generalized weakness. HEAD: Denies acute: headache, photophobia Eyes: Denies acute: Double vision, vision loss, eye pain, eye discharge. EARS: Denies acute: tinnitus, hearing loss, ear discharge, ear pain, THROAT: Denies acute: sore throat, swelling, difficulty swallowing , pain with swallowing, change in voice. NECK: Denies acute: neck pain, neck swelling, stiff neck. HEART: Denies acute : chest pain, palpitations, LUNGS: Denies acute: SOB, wheezing, cough, hemoptysis ABDOMEN: Denies acute: Vomiting, melena , hematemesis, hematochezia SKIN: Denies acute: rash, redness, lesions, itchiness. EXTREMITIES: Denies acute: calf pain, numbness, tingling, weakness, denies pain in extremity. Denies acute: Low back pain. Neuro: Denies acute: focal neurological deficit, motor or sensory focal neurological deficit, tremors, seizure like activity, confusion, dizziness, change in mental status, loss of bowel or bladder function, cauda equina like symptoms. : Denies acute: dysuria, flank pain, increase in urinary frequency. PSYCH: Denies acute: hallucination, suicidal ideation, homicidal ideation. PHYSICAL EXAM: General: -----[id number]---acute distress, awake and alert. Head: normocephalic, atraumatic. Neck: supple, trachea is midline, no swelling. Throat: Normal phonation. Eyes:, no erythema, no purulent discharge, no proptosis, no icterus. Heart: regular rate, regular rhythm, no significant murmur appreciated. Lungs: no apparent respiratory distress, Able to speak in full sentences. No wheezing, no rhonchi, no crackles. No stridors Clear to auscultation bilaterally. Abdomen: Umbilical tender to palpation, non distended, soft, no guarding, no rebound, + bowel sounds. Morbidly obese Noted chronic abdominal hernia Neuro: Awake, Alert, oriented to name, self, situation, follows commands GCS=15. Speech is normal. Skin: no petechia, no purpura, no cyanosis, non-pale, not jaundice. Lower extremities: --no - Pitting edema no deformity, no focal swelling, no calf TTP. Makes eye contact. moves all four extremities. Face: no apparent facial droop. Ambulating in the ED independently. ED COURSE: Chief Complaint: Abdominal Pain Time Seen by MD: 17:35 Primary Care Provider: Chapito Reviewed Notes: Nurses Notes Allergies: Coded Allergies: Ciprofloxacin (Verified Allergy, Severe, 11/05/23) Vancomycin (Verified Allergy, Severe, ANAPHYLAXIS , 01/05/22) Home Meds Active Scripts Pantoprazole Sodium Sesquihydr (Protonix) 40 Mg Tab, 40 MG PO DAILY, #30 TAB Prov:Zena Sparksline 01/05/22 Reported Medications Levothyroxine Sodium (Levothyroxine Sodium) 25 Mcg Tab, 1 TAB PO QAM Take 2 tablets (50 mcg) by mouth every morning for 5 days, then 1 tablet (25 mcg) by mouth every morning for 2 days a week. 11/09/23 Folic Acid (Folic Acid) 1 Mg Tab, 1 MG PO DAILY, MG 01/05/22 Losartan Potassium (Losartan Potassium) 50 Mg Tab, 50 MG PO DAILY for 30 Days, M G 01/05/22 Ferrous Sulfate (Ferrous Sulfate) 325 Mg Tab, 325 MG PO DAILY, MG 01/05/22 Ipratropium-Albuterol (Ipratropium Happy/Albut) 1 Steffi Steffi, 1 VIAL NEB Q4HP 01/05/22 Allopurinol (Allopurinol) 100 Mg Tab, 100 MG PO DAILY, MG 01/05/22 Atorvastatin Calcium (ATORVASTATIN CALCIUM) 40 Mg Tab, 1 TAB PO HS, #90 TAB 3 Refills 01/05/22 Information Source: Patient Mode of Arrival: Ambulatory Brought in by: self Past Medical History PAST MEDICAL HISTORY: CHF, COPD Surgical History: Pt Confused Family History Family History: Reviewed,noncontributory to illness Social History Smoker: Non-Smoker Alcohol: Denies ETOH Use Drugs: Denies Drug Use Lives In: Assisted Care Was a procedure done? Was a procedure done?: No GI differential Dx Differential Diagnosis: Other (DDX include but not limited to diverticulitis, colitis, gastroenteritis, acute abdomen, SBO, enteritis, constipation, volvulus, appendicitis, Gallbladder disease, choledocolithiasis, ascending cholangitis, pancreatitis, intraAbdominal mass/neoplasm, hepatitis, UTI, pylonephritis, kidney stone, aneurysm, dissection, Inflammatory bowel disease, gastroparesis, ischemic bowel.) X-Ray, Labs, Meds, VS Vital Signs Date Time Temp Pulse Resp B/P (MAP) Pulse Ox O2 Delivery O2 Flow Rate FiO2 01/02/25 17:42 97.8 92 16 106/52 (70) 94 97.8 Lab Test 01/02/25 18:31 01/02/25 17:45 01/02/25 17:44 Range/Units Troponin I High Sensitivity 8 7 </=54 ng/L Urine Color Yellow Yellow Urine Clarity Turbid H Clear Urine pH 5.5 5.0-9.0 Urine Specific [place] 1.029 1.001-1.035 Urine Protein 1+ H Negative Urine Ketones Negative Negative Urine Blood Trace H Negative /uL Urine Nitrite Negative Negative Urine Bilirubin 1+ Negative Urine Urobilinogen 2 H Negative mg/dL Urine Leukocyte Esterase 3+ Negative /uL Urine RBC 28 0 - 3 /hpf Urine Microscopic WBC 135 H 0-3 /HPF Urine Squamous Epithelial Cells Few <5 /hpf Urine Calcium Oxalate Crystals Many None Seen Urine Bacteria Few H None Seen /hpf Urine Mucus Few None Seen Urine Glucose Normal Normal mg/dL White Blood Count 4.6 4.4-10.8 10^3/uL Red Blood Count 5.87 4.5-5.90 10^6/uL Hemoglobin 16.0 13.5-17.5 g/dL Hematocrit 47.2 41.0-53.0 % Mean Corpuscular Volume 80.4 80.0-100.0 fL Mean Corpuscular Hemoglobin 27.3 L 28.0-32.0 pg Mean Corpuscular Hemoglobin Concent 33.9 32.0-36.0 g/dL Red Cell Distribution Width 19.8 H 11.8-14.3 % Platelet Count 147 140-450 10^3/uL Mean Platelet Volume 9.7 6.9-10.8 fL Neutrophils (%) (Auto) 61.6 37.0-80.0 % Lymphocytes (%) (Auto) 18.2 10.0-50.0 % Monocytes (%) (Auto) 16.9 H 0.0-12.0 % Eosinophils (%) (Auto) 2.9 0.0-7.0 % Basophils (%) (Auto) 0.4 0.0-2.0 % Neutrophils # (Auto) 2.8 1.6-8.6 10 ^3/uL Lymphocytes # (Auto) 0.8 0.4-5.4 10 ^3/uL Monocytes # (Auto) 0.8 0-1.3 10 ^3/uL Eosinophils # (Auto) 0.1 0-0.8 10 ^3/uL Basophils # (Auto) 0 0-0.2 10 ^3/uL Nucleated Red Blood Cells 0.5 % Sodium Level 138 136-145 mmol/L Potassium Level 4.6 3.5-5.1 mmol/L Chloride Level 100 98-107 mmol/L Carbon Dioxide Level 29 20-31 mmol/L Anion Gap 9 5-15 Blood Urea Nitrogen 12 9-23 mg/dL Creatinine 0.87 0.700-1.30 mg/dL Glomerular Filtration Rate Calc 98 >90 mL/min BUN/Creatinine Ratio 13.8 10.0-20.0 Serum Glucose 128 H 74-106 mg/dL Lactic Acid Level 1.0 0.4-2.0 mmol/L Calcium Level 9.4 8.7-10.4 mg/dL Total Bilirubin 2.6 H 0.2-1.0 mg/dL Aspartate Amino Transferase (AST) 15 13-40 U/L Alanine Aminotransferase (ALT) 16 7-40 U/L Alkaline Phosphatase 79 46-116 U/L Total Protein 6.5 5.7-8.2 g/dL Albumin 4.5 3.2-4.8 g/dL Lipase 25 12-53 U/L [place] [address] Ph: [phone] DIAGNOSTIC IMAGING Diagnostic Imaging Report : [id number] Signed PATIENT: ZAFAR HASSAN ACCT: [id number] UNIT: [id number] : 1960 LOC: ER ROOM / BED: / AGE / SEX: 64 / M ADM STATUS: REG ER SERVICE [id number] ORDERING PHYSICIAN: ANMOL TENORIO DO PROCEDURE(s): ABPL - CT AB PEL WO CON-NO ORAL OR IV REASON: periumbilical pain ORDER NUMBER(s): [id number], ACCESSION NUMBER(s): [id number] Exam: CT CT AB PEL WO CON-NO ORAL OR IV History: periumbilical pain Comparison Study: CT CT AB PEL WO CON-NO ORAL OR IV on DOS: 11/07/23, CT CT AB PEL WO CON-NO ORAL OR IV on DOS: 11/05/23, [facility] on DOS: 12/30/21 Technique: Multidetector spiral CT of the abdomen was performed from lung bases to pubic symphysis. Imaging was performed without IV contrast. Axial, coronal and sagittal multiplanar reformats were obtained from the axial data set by the technologist. Radiation Dose : 1. Abdomen/Pelvis: CTDIvol 26.94 mGy, DLP 1454.57 mGy*cm. Findings: Evaluation of solid organs is limited due to lack of intravenous contrast use. Lung Bases: No acute or significant lung base finding. Normal heart size. No pl eural or pericardial effusion. Liver: The liver is normal in size. No focal lesions. Gallbladder and Biliary Tree: Unremarkable Spleen: Unremarkable Pancreas: The pancreas is grossly normal in appearance. Adrenal Glands: Unremarkable Kidneys: Kidneys are grossly normal without calculi or hydronephrosis. Bladder: Grossly unremarkable for degree of distention. Bowel: The stomach is grossly normal in appearance. Multiple slightly dilated loops of bowel are seen throughout the abdomen with probable transition point at the level of the left lower quadrant ventral hernia containing a loop of inflamed small bowel. Normal appendix is visualized in the right lower quadrant without findings of appendicitis. No free air. Ascites: Absent Lymphadenopathy: No mesenteric, retroperitoneal or periportal lymphadenopathy. Abdominal Wall and Mesentery: Moderate size ventral hernia in the left lower quadrant containing a loop of slightly inflamed small bowel Vasculature: The visualized abdominal aorta is normal in size and caliber. Evaluation of abdominal and pelvic vessels is limited due to lack of intravenous contrast. Pelvic Organs: Unremarkable Musculoskeletal: No aggressive focal bony lesions, acute fractures or dislocation. IMPRESSION: 1. Probable low-grade small-bowel obstruction with transition point at the level of the left lower quadrant ventral hernia. No free fluid identified. No free air. Radiation optimization: All CT scans at this facility use at least one of these dose optimization techniques: automated exposure control mA and/or kV adjustment per patient size (includes targeted exams where dose is matched to clinical indication) or iterative reconstruction. ATED BY: ROXY LEAL MD DICTATED DATE/TIME: 01/02/251829 SIGNED BY: ROXY LEAL MD SIGNED DATE/TIME: 01/02/251829 CC: Time of 1ST Reevaluation: 19:27 (The case was discussed with the [facility] on-call team (HPI, physical exam, labs and diagnostic tests that were available at the time of disposition, ED course, treatment plan) on the phone. They agreed follow up with the patient in consult. They recommend NG tube and fluids and NPO. Dr. ramsay) Reevaluation 1ST: Unchanged Patient Education/Counseling: Diagnosis, Treatment Family Education/Counseling: Diagnosis, Treatment Comments Patient presented with the above HPI.---abdominal pain---workup was initiated. patient was found with the above mentioned diagnosis. the following medications were ordered: please refer to order lists of meds and tests obtained by myself Dr. Tenorio. Patient ED course and VS have been stabilized. Patient has been reassessed in the ED and remained in a stable condition. Pertinent incidental findings were discussed with the patient and/or family. Patient/family voices understanding and is agreeable with plan. Patient has been observed in the ED adequate length of time to insure improvement/stability. Escalation of care considered: Consideration of escalation to observation or admission General surgery was consulted. Patient was ADMITTED to the medicine team for further evaluation and treatment of their presentation. All the reports of any imaging studies that were ordered by myself were reviewed by myself. Departure 1 Departure Time of Disposition: 19:12 Impression: Primary Impression: Small bowel obstruction Additional Impression: Urinary tract infection Disposition: 09 ADMITTED INPATIENT Admit to: Tele Condition: Guarded Discharged With: Self Critical Care Note Critical Care Time?: Yes (45 min-critical care time only) I personally scribed for ANMOL TENORIO DO ([facility] on 01/02/25 at 18:02. Electronically submitted by Hansel Samuel ([facility] I personally scribed for ANMOL TENORIO DO ([facility]) on 01/02/25 at 19:49. Electronically submitted by Hansel Samuel ([facility] I personally scribed for ANMOL TENORIO DO ([facility]) on 01/02/25 at 19:50. Electronically submitted by Hansel Samuel ([email or web address]). ANMOL TENORIO DO January 02, 2025 18:02
[2025-01-02 18:32] LABS: Urine Bacteria FEW /hpf (None Seen); Urine Blood TRACE /uL (Negative); Urine Clarity Turbid (Clear); Urine Color Yellow (Yellow); Urine Mucus FEW (None Seen); Urine Protein, UAD 1+ (Negative); Urine Specific Gravity 1.029 (1.001-1.035); Urine Squamous Epithelial Cell FEW /hpf (<5); Urine Urobilinogen 2 mg/dL (Negative); Urine WBC 135 /HPF (0-3); Urine pH 5.5 (5.0-9.0)
--- NOTE | 2025-01-02 18:32 | DVH ---
Exam: CT CT AB PEL WO CON-NO ORAL OR IV History: periumbilical pain Comparison Study: CT CT AB PEL WO CON-NO ORAL OR IV on DOS: 11/07/23, CT CT AB PEL WO CON-NO ORAL OR I V on DOS: 11/05/23, [facility] on DOS: 12/30/21 Technique: Multidetector spiral CT of the abdomen was performed from lung bases to pubic symphysis. Imaging was performed without IV contrast. Axial, coronal and sagittal multiplanar reformats were ob tained from the axial data set by the technologist. Radiation Dose : 1. Abdomen/Pelvis: CTDIvol 26.94 mGy, DLP 1454.57 mGy*cm. Findings: Evaluation of solid organs is limited due to lack of intravenous contrast use. Lung Bases: No acute or significant lung base finding. Normal heart size. No pleural or pericardial effusion. Liver: The liver is normal in size. No focal lesions. Gallbladder and Biliary Tree: Unremarkable Spleen: Unremarkable Pancreas: The pancreas is grossly normal in appearance. Adrenal Glands: Unremarkable Kidneys: Kidneys are grossly normal without calculi or hydronephrosis. Bladder: Grossly unremarkable for degree of distention. Bowel: The stomach is grossly normal in appearance. Multiple slightly dilated loops of bowel are seen throughout the abdomen with probable transition point at the level of the left lower quadrant ventra l hernia containing a loop of inflamed small bowel. Normal appendix is visualized in the right lower quadrant without findings of appendicitis. No free air. Ascites: Absent Lymphadenopathy: No mesenteric, retroperitoneal or periportal lymphadenopathy. Abdominal Wall and Mesentery: Moderate size ventral hernia in the left lower quadrant containing a lo op of slightly inflamed small bowel Vasculature: The visualized abdominal aorta is normal in size and caliber. Evaluation of abdominal a nd pelvic vessels is limited due to lack of intravenous contrast. Pelvic Organs: Unremarkable Musculoskeletal: No aggressive focal bony lesions, acute fractures or dislocation. IMPRESSION: 1. Probable low-grade small-bowel obstruction with transition point at the level of the left lower qu adrant ventral hernia. No free fluid identified. No free air. Radiation optimization: All CT scans at this facility use at least one of these dose optimization dasha hniques: automated exposure control mA and/or kV adjustment per patient size (includes targeted exam s where dose is matched to clinical indication) or iterative reconstruction.
[2025-01-02 18:45] LABS: Alanine Aminotransferase 16 U/L (7-40); Albumin 4.5 g/dL (3.2-4.8); Alkaline Phosphatase 79 U/L (46-116); Anion Gap 9 (5-15); Aspartate Aminotransferase 15 U/L (13-40); BUN/Creatinine Ratio 13.8 (10.0-20.0); Blood Urea Nitrogen 12 mg/dL (9-23); Calcium 9.4 mg/dL (8.7-10.4); Carbon Dioxide 29 mmol/L (20-31); Chloride 100 mmol/L (98-107); Lipase 25 U/L (12-53); Potassium 4.6 mmol/L (3.5-5.1); Sodium 138 mmol/L (136-145); Total Protein 6.5 g/dL (5.7-8.2)
[2025-01-02 18:49] LABS: Bilirubin, Total 2.6 mg/dL (0.2-1.0); Glucose 128 mg/dL (74-106)
[2025-01-02] MEDS ORDERED: ONDANSETRON HCL 4 MG/2 ML VIAL IV PRN (20:00)
[2025-01-02 20:47] LABS: Anion Gap 6 (5-15); Chloride 101 mmol/L (98-107); Potassium 4.2 mmol/L (3.5-5.1); Sodium 139 mmol/L (136-145)
[2025-01-02 20:48] LABS: Calcium 9.4 mg/dL (8.7-10.4)
[2025-01-02 20:53] LABS: BUN/Creatinine Ratio 13.1 (10.0-20.0); Blood Urea Nitrogen 11 mg/dL (9-23); Glucose 101 mg/dL (74-106)
[2025-01-02 20:54] LABS: Carbon Dioxide 32 mmol/L (20-31)
--- NOTE | 2025-01-02 21:23 | DVHHP2 ---
History of Present Illness Reason for Visit: Abdominal pain History of Present Illness 64-year-old male presents for evaluation of abdominal pain. Patient reports a three day history of sharp periumbilical abdominal pain with associated diarrhea. Reports having multiple abdominal surgeries with complications from an abdominal hernia repair. Denies fever or chills. No cardiac or respiratory complaints. Past Medical History CHF, diabetes mellitus, hypertension, obstructive sleep apnea Past Surgical History Hernia repair Family History Noncontributory Smoke: No ALCOHOL: none Drugs: None Lives: with Family Review of Systems Review of Systems Review of systems are currently negative otherwise addressed in HPI Allergies: Coded Allergies: Ciprofloxacin (Verified Allergy, Severe, 11/05/23) Vancomycin (Verified Allergy, Severe, ANAPHYLAXIS , 01/05/22) Medications Current Medications Medications Dose Ordered Sig/Blanca Route Start Time Stop Time Status Last Admin Dose Admin Ceftriaxone Sodium 50 ml @ 100 mls/hr DAILY@09 IV 01/03/25 09:00 Ondansetron HCl 4 mg Q4HP PRN IV 01/02/25 20:00 Morphine Sulfate 2 mg Q4HPRN PRN IV 01/02/25 20:00 Exam Vital Signs Vital Signs Date Time Temp Pulse Resp B/P (MAP) Pulse Ox O2 Delivery O2 Flow Rate FiO2 01/02/25 20:50 99.5 92 14 126/68 (87) 94 99.5 01/02/25 20:50 Room Air* 0 21 Exam Gen: 64-year-old male in mild distress, morbidly obese Skin: Warm, dry, normal color and texture, no rash. HEENT: Normocephalic atraumatic, mucous membranes moist and pink. Neck: Cervical and supraclavicular nodes normal without enlargement, trachea is midline, thyroid gland is normal without masses. Pulmonary: Clear to auscultation and percussion bilaterally. Cardiac: Regular rate and rhythm. No murmur Abdomen: Soft, periumbilical tenderness, nondistended, bowel sounds present all 4 quadrants, no guarding, no rigidity, no organomegaly. Extremities: No cyanosis, clubbing, no edema Neuro: Cranial nerves II through XII grossly intact, normal affect and speech, no focal motor deficits. Labs/Xrays ORDERING PHYSICIAN: ANMOL TENORIO DO PROCEDURE(s): ABPL - CT AB PEL WO CON-NO ORAL OR IV REASON: periumbilical pain ORDER NUMBER(s): [id number], ACCESSION NUMBER(s): [id number] Exam: CT CT AB PEL WO CON-NO ORAL OR IV History: periumbilical pain Comparison Study: CT CT AB PEL WO CON-NO ORAL OR IV on DOS: 11/07/23, CT CT AB PEL WO CON-NO ORAL OR IV on DOS: 11/05/23, [facility] on DOS: 12/30/21 Technique: Multidetector spiral CT of the abdomen was performed from lung bases to pubic symphysis. Imaging was performed without IV contrast. Axial, coronal and sagittal multiplanar reformats were obtained from the axial data set by the technologist. Radiation Dose : 1. Abdomen/Pelvis: CTDIvol 26.94 mGy, DLP 1454.57 mGy*cm. Findings: Evaluation of solid organs is limited due to lack of intravenous contrast use. Lung Bases: No acute or significant lung base finding. Normal heart size. No pleural or pericardial effusion. Liver: The liver is normal in size. No focal lesions. Gallbladder and Biliary Tree: Unremarkable Spleen: Unremarkable Pancreas: The pancreas is grossly normal in appearance. Adrenal Glands: Unremarkable Kidneys: Kidneys are grossly normal without calculi or hydronephrosis. Bladder: Grossly unremarkable for degree of distention. Bowel: The stomach is grossly normal in appearance. Multiple slightly dilated loops of bowel are seen throughout the abdomen with probable transition point at the level of the left lower quadrant ventral hernia containing a loop of inflamed small bowel. Normal appendix is visualized in the right lower quadrant without findings of appendicitis. No free air. Ascites: Absent Lymphadenopathy: No mesenteric, retroperitoneal or periportal lymphadenopathy. Abdominal Wall and Mesentery: Moderate size ventral hernia in the left lower quadrant containing a loop of slightly inflamed small bowel Vasculature: The visualized abdominal aorta is normal in size and caliber. Evaluation of abdominal and pelvic vessels is limited due to lack of intravenous contrast. Pelvic Organs: Unremarkable Musculoskeletal: No aggressive focal bony lesions, acute fractures or dislocation. IMPRESSION: 1. Probable low-grade small-bowel obstruction with transition point at the level of the left lower quadrant ventral hernia. No free fluid identified. No free air. Radiation optimization: All CT scans at this facility use at least one of these dose optimization techniques: automated exposure control mA and/or kV adjustment per patient size (includes targeted exams where dose is matched to clinical indication) or iterative reconstruction. ATED BY: ROXY KERNS MD DICTATED DATE/TIME: 01/02/25 1830 Labs Test 01/02/25 20:33 01/02/25 17:45 01/02/25 17:44 Range/Units Sodium Level 139 136-145 mmol/L Potassium Level 4.2 3.5-5.1 mmol/L Chloride Level 101 98-107 mmol/L Carbon Dioxide Level 32 H 20-31 mmol/L Anion Gap 6 5-15 Blood Urea Nitrogen 11 9-23 mg/dL Creatinine 0.84 0.700-1.30 mg/dL Glomerular Filtration Rate Calc 99 >90 mL/min BUN/Creatinine Ratio 13.1 10.0-20.0 Serum Glucose 101 74-106 mg/dL Calcium Level 9.4 8.7-10.4 mg/dL Troponin I High Sensitivity 8 </=54 ng/L Urine Color Yellow Yellow Urine Clarity Turbid H Clear Urine pH 5.5 5.0-9.0 Urine Specific [place] 1.029 1.001-1.035 Urine Protein 1+ H Negative Urine Ketones Negative Negative Urine Blood Trace H Negative /uL Urine Nitrite Negative Negative Urine Bilirubin 1+ Negative Urine Urobilinogen 2 H Negative mg/dL Urine Leukocyte Esterase 3+ Negative /uL Urine RBC 28 0 - 3 /hpf Urine Microscopic WBC 135 H 0-3 /HPF Urine Squamous Epithelial Cells Few <5 /hpf Urine Calcium Oxalate Crystals Many None Seen Urine Bacteria Few H None Seen /hpf Urine Mucus Few None Seen Urine Glucose Normal Normal mg/dL White Blood Count 4.6 4.4-10.8 10^3/uL Red Blood Count 5.87 4.5-5.90 10^6/uL Hemoglobin 16.0 13.5-17.5 g/dL Hematocrit 47.2 41.0-53.0 % Mean Corpuscular Volume 80.4 80.0-100.0 fL Mean Corpuscular Hemoglobin 27.3 L 28.0-32.0 pg Mean Corpuscular Hemoglobin Concent 33.9 32.0-36.0 g/dL Red Cell Distribution Width 19.8 H 11.8-14.3 % Platelet Count 147 140-450 10^3/uL Mean Platelet Volume 9.7 6.9-10.8 fL Neutrophils (%) (Auto) 61.6 37.0-80.0 % Lymphocytes (%) (Auto) 18.2 10.0-50.0 % Monocytes (%) (Auto) 16.9 H 0.0-12.0 % Eosinophils (%) (Auto) 2.9 0.0-7.0 % Basophils (%) (Auto) 0.4 0.0-2.0 % Neutrophils # (Auto) 2.8 1.6-8.6 10 ^3/uL Lymphocytes # (Auto) 0.8 0.4-5.4 10 ^3/uL Monocytes # (Auto) 0.8 0-1.3 10 ^3/uL Eosinophils # (Auto) 0.1 0-0.8 10 ^3/uL Basophils # (Auto) 0 0-0.2 10 ^3/uL Nucleated Red Blood Cells 0.5 % Lactic Acid Level 1.0 0.4-2.0 mmol/L Total Bilirubin 2.6 H 0.2-1.0 mg/dL Aspartate Amino Transferase (AST) 15 13-40 U/L Alanine Aminotransferase (ALT) 16 7-40 U/L Alkaline Phosphatase 79 46-116 U/L Total Protein 6.5 5.7-8.2 g/dL Albumin 4.5 3.2-4.8 g/dL Lipase 25 12-53 U/L Assessment/Plan Assessment/Plan Assessment Small-bowel obstruction Urinary tract infection Diabetes mellitus Morbid obesity Obstructive sleep apnea Plan Admit the patient to [facility] to the hospitalist Surgical consultation NPO Maintenance IV fluids Small-bowel follow-through pending Pain management Continue treatment per orders. Plan discussed with: Patient My Orders Orders - JHONNY BEYER AGACNP Procedure Category Date Status Time Ceftriaxone 1gm/50ml PHA 01/03/25 In Process D5w (Rocephin) 09:00 Small Bowel Series-W XY 01/02/25 Logged Gastrogra 19:48 Sodium Chloride 0.9% PHA 01/02/25 In Process 20:00 Admit ADMIT 01/02/25 Transmitted 19:48 Ondansetron Hcl PHA 01/02/25 In Process (Zofran) 20:00 Condition: Stable SHIRIN 01/02/25 In Process 19:48 Bedrest With Bathroom SHIRIN 01/02/25 In Process Privileg 19:48 Morphine Sulfate PHA 01/02/25 In Process Injection 20:00 Glucose Blood PHA 01/03/25 Transmitted (Accu-Chek Comfort 00:00 Mild Sliding Scale PHA 01/03/25 Transmitted Npo - Q6hr 00:00 Dextrose 50% Syringe PHA 01/02/25 Transmitted 21:30 Bipap/Cpap For Sleep RT 01/02/25 Transmitted Apnea 21:17 Date of Service: January 02, 2025 Billing Provider: JHONNY BEYER Common Visit Codes: [id number] INP/OBS CARE (HIGH) JHONNY BEYER January 02, 2025 21:23
[2025-01-02] MEDS ORDERED: DEXTROSE (50%) 50ML SYRG IV PRN (21:30)
[2025-01-03] VITALS (8 sets, daily range): BP systolic 123–128; BP diastolic 54–60; PULSE 77–85; RESP 17–18; TEMP 98.2–99.2; O2SAT 95–100
[2025-01-03] MEDS: ACCU-CHEK COMFORT CURVE STRIP VI SCH
[2025-01-03] MEDS: InsuLIN REG 1unit/0.01ml Soln (100units/ml) SC SCH
[2025-01-03] MEDS: SODIUM CHLORIDE 0.9% 1,000 ML IV ONE (02:15)
[2025-01-03] MEDS: ONDANSETRON HCL 4 MG/2 ML VIAL IV ONE (02:15)
[2025-01-03] MEDS: cefTRIAXone 1GM/50ML D5W 50 ML IV ONE (02:16)
--- NOTE | 2025-01-03 06:14 | DVH ---
EXAM: XY CHEST XRAY 1 VIEW HISTORY: NG TUBE PLACEMENT COMPARISON: XY CHEST PORTABLE on DOS: 11/06/23, CXRP on DOS: 01/10/22, CHEST PORTABLE on DOS: 01/10/22, CHEST PORTABLE on DOS: 01/06/22, CXRP on DOS: 01/06/22 TECHNIQUE: Portable upright AP view of the chest was performed. FINDINGS: NG tube is identified, folded on itself in the distal esophagus, with its tip in the right oral phary nx. No pneumothorax. There are diffuse bilateral interstitial opacities. Lung volumes are somewhat lo w. The heart is enlarged. There is abundant overlying soft tissue. IMPRESSION: 1. NG tube is folded on itself in the distal esophagus, and the tip is in the right oral pharynx. 2. Cardiomegaly with diffuse interstitial prominence suggestive of CHF. This appearance may be exagg erated by low lung volumes and the patient's large body habitus.
--- NOTE | 2025-01-03 07:10 | DVHINCON2 ---
Consultation - Surgical Date Seen: January 03, 2025 Referring Physician Referring Physician Emergency room Reason for Consultation Small bowel obstruction History of Present Illness History of Present Illness 64-year-old male presents for evaluation of abdominal pain. Patient reports a three day history of sharp periumbilical abdominal pain with associated diarrhea. Reports having multiple abdominal surgeries with complications from an abdominal hernia repair. Denies fever or chills. No cardiac or respiratory complaints. Patient has had multiple abdominal hernia repairs including infected mesh which was removed requiring a wound VAC. patient states she has currently has minimal pain. Last BM was yesterday. Past Medical/Surgical History Past Medical/Surgical History HTN, HLD, DM, COPD, CHF, multiple hernia operations including infected mesh removal requiring wound VAC. Family and Social History Family and Social History Nonsmoker nondrinker Allergies and medications Allergies: Coded Allergies: Ciprofloxacin (Verified Allergy, Severe, 11/05/23) Vancomycin (Verified Allergy, Severe, ANAPHYLAXIS , 01/05/22) Home Meds Active Scripts Pantoprazole Sodium Sesquihydr (Protonix) 40 Mg Tab, 40 MG PO DAILY, #30 TAB Prov:ClareMatthewCarol 01/05/22 Reported Medications Levothyroxine Sodium (Levothyroxine Sodium) 25 Mcg Tab, 1 TAB PO QAM Take 2 tablets (50 mcg) by mouth every morning for 5 days, then 1 tablet (25 mcg) by mouth every morning for 2 days a week. 11/09/23 Folic Acid (Folic Acid) 1 Mg Tab, 1 MG PO DAILY, MG 01/05/22 Losartan Potassium (Losartan Potassium) 50 Mg Tab, 50 MG PO DAILY for 30 Days, MG 01/05/22 Ferrous Sulfate (Ferrous Sulfate) 325 Mg Tab, 325 MG PO DAILY, MG 01/05/22 Ipratropium-Albuterol (Ipratropium [place]/Albut) 1 Steffi Steffi, 1 VIAL NEB Q4HP 01/05/22 Allopurinol (Allopurinol) 100 Mg Tab, 100 MG PO DAILY, MG 01/05/22 Atorvastatin Calcium (ATORVASTATIN CALCIUM) 40 Mg Tab, 1 TAB PO HS, #90 TAB 3 Refills 01/05/22 Review of systems Review of Systems: HEENT:Normal, CVS:Normal, RESPIRATORY:Normal, GI:Abnormal, :Normal, MSK:Normal, NEURO:Normal Examination Vital signs Vital Signs Date Time Temp Pulse Resp B/P (MAP) Pulse Ox O2 Delivery O2 Flow Rate FiO2 01/03/25 05:30 73 17 142/72 (95) 96 01/03/25 03:50 Facial BiPAP Mask 50 01/03/25 03:00 0 01/03/25 00:34 98.8 98.8 Medications Current Medications Medications (Trade) Dose Ordered Sig/Blanca Route PRN Reason Start Time Stop Time Status Last Admin Ceftriaxone Sodium 50 ml @ 100 mls/hr DAILY@09 IV 01/03/25 09:00 Ondansetron HCl (Zofran) 4 mg Q4HP PRN IV NAUSEA / VOMITING 01/02/25 20:00 Morphine Sulfate 2 mg Q4HPRN PRN IV SEVERE PAIN (7-10 PAIN SCALE) 01/02/25 20:00 Diagnostic Test (Pha) (Accu-Chek Comfort Curve T) 1 strip Q6HR 01/03/25 00:00 01/03/25 06:00 Insulin Human Regular (InsuLIN R) Q6HR SC 01/03/25 00:00 Dextrose 50 ml UD PRN IV Blood Sugar LESS THAN 60 01/02/25 21:30 Laboratory Labs Test 01/02/25 20:33 01/02/25 17:45 01/02/25 17:44 Range/Units Sodium Level 139 136-145 mmol/L Potassium Level 4.2 3.5-5.1 mmol/L Chloride Level 101 98-107 mmol/L Carbon Dioxide Level 32 H 20-31 mmol/L Anion Gap 6 5-15 Blood Urea Nitrogen 11 9-23 mg/dL Creatinine 0.84 0.700-1.30 mg/dL Glomerular Filtration Rate Calc 99 >90 mL/min BUN/Creatinine Ratio 13.1 10.0-20.0 Serum Glucose 101 74-106 mg/dL Calcium Level 9.4 8.7-10.4 mg/dL Troponin I High Sensitivity 8 </=54 ng/L Urine Color Yellow Yellow Urine Clarity Turbid H Clear Urine pH 5.5 5.0-9.0 Urine Specific [place] 1.029 1.001-1.035 Urine Protein 1+ H Negative Urine Ketones Negative Negative Urine Blood Trace H Negative /uL Urine Nitrite Negative Negative Urine Bilirubin 1+ Negative Urine Urobilinogen 2 H Negative mg/dL Urine Leukocyte Esterase 3+ Negative /uL Urine RBC 28 0 - 3 /hpf Urine Microscopic WBC 135 H 0-3 /HPF Urine Squamous Epithelial Cells Few <5 /hpf Urine Calcium Oxalate Crystals Many None Seen Urine Bacteria Few H None Seen /hpf Urine Mucus Few None Seen Urine Glucose Normal Normal mg/dL White Blood Count 4.6 4.4-10.8 10^3/uL Red Blood Count 5.87 4.5-5.90 10^6/uL Hemoglobin 16.0 13.5-17.5 g/dL Hematocrit 47.2 41.0-53.0 % Mean Corpuscular Volume 80.4 80.0-100.0 fL Mean Corpuscular Hemoglobin 27.3 L 28.0-32.0 pg Mean Corpuscular Hemoglobin Concent 33.9 32.0-36.0 g/dL Red Cell Distribution Width 19.8 H 11.8-14.3 % Platelet Count 147 140-450 10^3/uL Mean Platelet Volume 9.7 6.9-10.8 fL Neutrophils (%) (Auto) 61.6 37.0-80.0 % Lymphocytes (%) (Auto) 18.2 10.0-50.0 % Monocytes (%) (Auto) 16.9 H 0.0-12.0 % Eosinophils (%) (Auto) 2.9 0.0-7.0 % Basophils (%) (Auto) 0.4 0.0-2.0 % Neutrophils # (Auto) 2.8 1.6-8.6 10 ^3/uL Lymphocytes # (Auto) 0.8 0.4-5.4 10 ^3/uL Monocytes # (Auto) 0.8 0-1.3 10 ^3/uL Eosinophils # (Auto) 0.1 0-0.8 10 ^3/uL Basophils # (Auto) 0 0-0.2 10 ^3/uL Nucleated Red Blood Cells 0.5 % Lactic Acid Level 1.0 0.4-2.0 mmol/L Total Bilirubin 2.6 H 0.2-1.0 mg/dL Aspartate Amino Transferase (AST) 15 13-40 U/L Alanine Aminotransferase (ALT) 16 7-40 U/L Alkaline Phosphatase 79 46-116 U/L Total Protein 6.5 5.7-8.2 g/dL Albumin 4.5 3.2-4.8 g/dL Lipase 25 12-53 U/L Exam: CT CT AB PEL WO CON-NO ORAL OR IV History: periumbilical pain Comparison Study: CT CT AB PEL WO CON-NO ORAL OR IV on DOS: 11/07/23, CT CT AB PEL WO CON-NO ORAL OR IV on DOS: 11/05/23, [facility] on DOS: 12/30/21 Technique: Multidetector spiral CT of the abdomen was performed from lung bases to pubic symphysis. Imaging was performed without IV contrast. Axial, coronal and sagittal multiplanar reformats were obtained from the axial data set by the technologist. Radiation Dose : 1. Abdomen/Pelvis: CTDIvol 26.94 mGy, DLP 1454.57 mGy*cm. Findings: Evaluation of solid organs is limited due to lack of intravenous contrast use. Lung Bases: No acute or significant lung base finding. Normal heart size. No pleural or pericardial effusion. Liver: The liver is normal in size. No focal lesions. Gallbladder and Biliary Tree: Unremarkable Spleen: Unremarkable Pancreas: The pancreas is grossly normal in appearance. Adrenal Glands: Unremarkable Kidneys: Kidneys are grossly normal without calculi or hydronephrosis. Bladder: Grossly unremarkable for degree of distention. Bowel: The stomach is grossly normal in appearance. Multiple slightly dilated loops of bowel are seen throughout the abdomen with probable transition point at the level of the left lower quadrant ventral hernia containing a loop of inflamed small bowel. Normal appendix is visualized in the right lower quadrant without findings of appendicitis. No free air. Ascites: Absent Lymphadenopathy: No mesenteric, retroperitoneal or periportal lymphadenopathy. Abdominal Wall and Mesentery: Moderate size ventral hernia in the left lower quadrant containing a loop of slightly inflamed small bowel Vasculature: The visualized abdominal aorta is normal in size and caliber. Evaluation of abdominal and pelvic vessels is limited due to lack of intravenous contrast. Pelvic Organs: Unremarkable Musculoskeletal: No aggressive focal bony lesions, acute fractures or dislocation. IMPRESSION: 1. Probable low-grade small-bowel obstruction with transition point at the level of the left lower quadrant ventral hernia. No free fluid identified. No free air. Examination: GENERAL:Normal, HEENT:Normal, NECK:Normal, LUNGS:Normal, CVS:Normal, ABDOMEN:Abnormal (NG tube in place, abdomen obese soft minimal tenderness in the epigastrium no rebound no guarding), MSK:Normal, SKIN:Normal, NEURO:Normal Problem List/Assessment/Plan Problems: (1) Small bowel obstruction due to adhesions Assessment and Plan 64-year-old male with admission for abdominal pain partial small bowel obstruction. NG tube decompression IV fluids Electrolyte management Out of bed Plan discussed with Plan discussed with: Patient Visit Coding Surgery Date of Service if different f: January 03, 2025 Billing Provider: JON SANDHU Jr., MD Surgery Visit Codes: [id number] - INP CONSULT <80 MIN JON SANDHU Jr., MD January 03, 2025 07:09
[2025-01-03] MEDS ORDERED: GASTROGRAFIN 120 ML SOL ONE (07:30)
--- NOTE | 2025-01-03 07:55 | DVH ---
INDICATION: NGT placement TECHNIQUE: Frontal view of the chest. COMPARISON: XY CHEST XRAY 1 VIEW on DOS: 01/03/25, XY CHEST PORTABLE on DOS: 11/06/23, CXRP on DOS: 01/10, CHEST PORTABLE on DOS: 01/10/22, CHEST PORTABLE on DOS: 01/06/22 FINDINGS: NG tube in stomach. . The heart and mediastinal contours are grossly unremarkable. There is no evide nce of pleural disease. The lungs are clear. The bony structures of the chest are intact without f racture. IMPRESSION: 1. No evidence of acute disease.
[2025-01-03] MEDS: cefTRIAXone 1GM/50ML D5W 50 ML IV SCH (09:06)
--- NOTE | 2025-01-03 15:25 | DVH ---
Procedure: XY SMALL BOWEL SERIES-W GASTROGRA Reason for study/Clinical History: SBO HERNIA Comparison Study: None Technique: Single contrast small bowel series performed. FINDINGS/IMPRESSION: Initial head trimmer view of the abdomen and pelvis appears demonstrates no acute process. Contrast is identified within the colon by 3 hours. This represents a Mild delay in small bowel berry sit time. No evidence of obstruction identified.
--- NOTE | 2025-01-03 15:40 | DVHINCON2 ---
Date of service: January 03, 2025 Family History: Patient reports no known family medical history. Allergies: Coded Allergies: Ciprofloxacin (Verified Allergy, Severe, 11/05/23) Vancomycin (Verified Allergy, Severe, ANAPHYLAXIS , 01/05/22) Home Meds Active Scripts Pantoprazole Sodium Sesquihydr (Protonix) 40 Mg Tab, 40 MG PO DAILY, #30 TAB Prov:Carol Sparks 01/05/22 Reported Medications Levothyroxine Sodium (Levothyroxine Sodium) 25 Mcg Tab, 1 TAB PO QAM Take 2 tablets (50 mcg) by mouth every morning for 5 days, then 1 tablet (25 mcg) by mouth every morning for 2 days a week. 11/09/23 Folic Acid (Folic Acid) 1 Mg Tab, 1 MG PO DAILY, MG 01/05/22 Losartan Potassium (Losartan Potassium) 50 Mg Tab, 50 MG PO DAILY for 30 Days, MG 01/05/22 Ferrous Sulfate (Ferrous Sulfate) 325 Mg Tab, 325 MG PO DAILY, MG 01/05/22 Ipratropium-Albuterol (Ipratropium [place]/Albut) 1 Steffi Steffi, 1 VIAL NEB Q4HP 01/05/22 Allopurinol (Allopurinol) 100 Mg Tab, 100 MG PO DAILY, MG 01/05/22 Atorvastatin Calcium (ATORVASTATIN CALCIUM) 40 Mg Tab, 1 TAB PO HS, #90 TAB 3 Refills 01/05/22 Current Medications Current Medications Medications (Trade) Dose Ordered Sig/Blanca Route PRN Reason Start Time Stop Time Status Last Admin Ceftriaxone Sodium 50 ml @ 100 mls/hr DAILY@09 IV 01/03/25 09:00 01/03/25 09:06 Ondansetron HCl (Zofran) 4 mg Q4HP PRN IV NAUSEA / VOMITING 01/02/25 20:00 Morphine Sulfate 2 mg Q4HPRN PRN IV SEVERE PAIN (7-10 PAIN SCALE) 01/02/25 20:00 Diagnostic Test (Pha) (Accu-Chek Comfort Curve T) 1 strip Q6HR 01/03/25 00:00 01/03/25 12:00 Insulin Human Regular (InsuLIN R) Q6HR SC 01/03/25 00:00 Dextrose 50 ml UD PRN IV Blood Sugar LESS THAN 60 01/02/25 21:30 Vital Signs Vital Signs Date Time Temp Pulse Resp B/P (MAP) Pulse Ox O2 Delivery O2 Flow Rate FiO2 01/03/25 12:37 89 01/03/25 10:00 24 103/62 (76) 98 01/03/25 09:00 97.6 97.6 01/03/25 09:00 Nasal Cannula* 4 36 Labs/Diagnostic Data Labs Test 01/02/25 20:33 01/02/25 17:45 01/02/25 17:44 Range/Units Sodium Level 139 136-145 mmol/L Potassium Level 4.2 3.5-5.1 mmol/L Chloride Level 101 98-107 mmol/L Carbon Dioxide Level 32 H 20-31 mmol/L Anion Gap 6 5-15 Blood Urea Nitrogen 11 9-23 mg/dL Creatinine 0.84 0.700-1.30 mg/dL Glomerular Filtration Rate Calc 99 >90 mL/min BUN/Creatinine Ratio 13.1 10.0-20.0 Serum Glucose 101 74-106 mg/dL Calcium Level 9.4 8.7-10.4 mg/dL Troponin I High Sensitivity 8 </=54 ng/L Urine Color Yellow Yellow Urine Clarity Turbid H Clear Urine pH 5.5 5.0-9.0 Urine Specific [place] 1.029 1.001-1.035 Urine Protein 1+ H Negative Urine Ketones Negative Negative Urine Blood Trace H Negative /uL Urine Nitrite Negative Negative Urine Bilirubin 1+ Negative Urine Urobilinogen 2 H Negative mg/dL Urine Leukocyte Esterase 3+ Negative /uL Urine RBC 28 0 - 3 /hpf Urine Microscopic WBC 135 H 0-3 /HPF Urine Squamous Epithelial Cells Few <5 /hpf Urine Calcium Oxalate Crystals Many None Seen Urine Bacteria Few H None Seen /hpf Urine Mucus Few None Seen Urine Glucose Normal Normal mg/dL White Blood Count 4.6 4.4-10.8 10^3/uL Red Blood Count 5.87 4.5-5.90 10^6/uL Hemoglobin 16.0 13.5-17.5 g/dL Hematocrit 47.2 41.0-53.0 % Mean Corpuscular Volume 80.4 80.0-100.0 fL Mean Corpuscular Hemoglobin 27.3 L 28.0-32.0 pg Mean Corpuscular Hemoglobin Concent 33.9 32.0-36.0 g/dL Red Cell Distribution Width 19.8 H 11.8-14.3 % Platelet Count 147 140-450 10^3/uL Mean Platelet Volume 9.7 6.9-10.8 fL Neutrophils (%) (Auto) 61.6 37.0-80.0 % Lymphocytes (%) (Auto) 18.2 10.0-50.0 % Monocytes (%) (Auto) 16.9 H 0.0-12.0 % Eosinophils (%) (Auto) 2.9 0.0-7.0 % Basophils (%) (Auto) 0.4 0.0-2.0 % Neutrophils # (Auto) 2.8 1.6-8.6 10 ^3/uL Lymphocytes # (Auto) 0.8 0.4-5.4 10 ^3/uL Monocytes # (Auto) 0.8 0-1.3 10 ^3/uL Eosinophils # (Auto) 0.1 0-0.8 10 ^3/uL Basophils # (Auto) 0 0-0.2 10 ^3/uL Nucleated Red Blood Cells 0.5 % Lactic Acid Level 1.0 0.4-2.0 mmol/L Total Bilirubin 2.6 H 0.2-1.0 mg/dL Aspartate Amino Transferase (AST) 15 13-40 U/L Alanine Aminotransferase (ALT) 16 7-40 U/L Alkaline Phosphatase 79 46-116 U/L Total Protein 6.5 5.7-8.2 g/dL Albumin 4.5 3.2-4.8 g/dL Lipase 25 12-53 U/L Assessment [id number] afebrile VSS ABD SOFT MILD DISTENSION MORBID OBESITY NO BM FLATUS + POSSIBLE ILEUS/SBO CONSERVATIVE KEEP NPO NG CLOSE OBSERVATION Plan discussed with: Patient ZHOU LI MD January 03, 2025 15:40
--- NOTE | 2025-01-03 16:25 | DVHPN2 ---
Subjective Patient denies any symptoms at this time. Reviewed: Care Plan, H&P, Labs, Medications Changes from previous H/P or p: No Changes General: Per HPI Objective Vitals Vital Signs Date Time Temp Pulse Resp B/P (MAP) Pulse Ox O2 Delivery O2 Flow Rate FiO2 01/03/25 15:00 93 24 113/52 (72) 91 01/03/25 09:00 97.6 97.6 01/03/25 09:00 Nasal Cannula* 4 36 General Appearance: Alert, Oriented X3, Cooperative, No acute distress HEENT: Atraumatic, PERRLA Cardiovascular: Normal S1, Normal S2 Abdomen: Normal bowel sounds, Soft Musculoskeletal: Normal sensory function, Normal motor function Skin: Dry, Intact Psych/Mental Status: Mental status NL, Mood NL Medications Current Medications Medications Dose Ordered Sig/Blanca Route Start Time Stop Time Status Last Admin Dose Admin Ceftriaxone Sodium 50 ml @ 100 mls/hr DAILY@09 IV 01/03/25 09:00 01/03/25 09:06 100 MLS/HR Ondansetron HCl 4 mg Q4HP PRN IV 01/02/25 20:00 Morphine Sulfate 2 mg Q4HPRN PRN IV 01/02/25 20:00 Diagnostic Test (Pha) 1 strip Q6HR 01/03/25 00:00 01/03/25 12:00 1 STRIP Insulin Human Regular Q6HR SC 01/03/25 00:00 Dextrose 50 ml UD PRN IV 01/02/25 21:30 Laboratory Results Laboratory Tests 01/02/25 17:44 01/02/25 20:33 Chemistry Test 01/02/25 17:44 01/02/25 20:33 Albumin 4.5 g/dL (3.2-4.8) Calcium Level 9.4 mg/dL (8.7-10.4) 9.4 mg/dL (8.7-10.4) Total Protein 6.5 g/dL (5.7-8.2) Lipid panel Test 01/02/25 17:44 Lipase 25 U/L (12-53) LFT Test 01/02/25 17:44 Alanine Aminotransferase (ALT) 16 U/L (7-40) Alkaline Phosphatase 79 U/L (46-116) Aspartate Amino Transferase (AST) 15 U/L (13-40) Total Bilirubin 2.6 mg/dL (0.2-1.0) H Urinalysis Test 01/02/25 17:45 Urine Color Yellow (Yellow) Urine Clarity Turbid (Clear) H Urine pH 5.5 (5.0-9.0) Urine Specific [place] 1.029 (1.001-1.035) Urine Protein 1+ (Negative) H Urine Ketones Negative (Negative) Urine Blood Trace /uL (Negative) H Urine Nitrite Negative (Negative) Urine Bilirubin 1+ (Negative) Urine Urobilinogen 2 mg/dL (Negative) H Urine Leukocyte Esterase 3+ /uL (Negative) Urine RBC 28 /hpf (0 - 3) Urine Microscopic WBC 135 /HPF (0-3) H Urine Squamous Epithelial Cells Few /hpf (<5) Urine Calcium Oxalate Crystals Many (None Seen) Urine Bacteria Few /hpf (None Seen) H Urine Mucus Few (None Seen) Urine Glucose Normal mg/dL (Normal) Labs and/or images reviewed: Labs reviewed by me, Image(s) reviewed by me Assessment/Plan Assessment/Plan Impression: -small-bowel obstruction -obesity -ventral hernia -primary hypertension -morbid obesity -obstructive sleep apnea Plan: -small-bowel follow-through reveals a Gastrografin transitioned to patient's: Within 3 hours. Patient denies any symptoms. -clamp NG tube, start clear liquid diet -surgical consultation: Recommendations reviewed -start home medications -repeat labs in a.m. -continue CPAP/BiPAP for obstructive sleep apnea Total time spent with patient discussing and formulating plan of care: 35 minutes. This medical document was created using an electronic medical record system with [employer] dictation system. Although this document has been carefully reviewed, there may still be some phonetic and typographical errors. These areas are purely typographical due to imperfections of the software programs, and do not reflect any compromise in the patient's medical care. Plan discussed with: Patient, Other (RN) Date of Service: January 03, 2025 Billing Provider: MINGO CLEARY NP Common Visit Codes: [id number] INP/OBS CARE(HIGH) MINGO CLEARY NP January 03, 2025 16:25
[2025-01-03] MEDS ORDERED: APIX5TAB PO (17:33)
--- NOTE | 2025-01-03 21:31 | DVHINCON2 ---
DATE OF CONSULTATION: 01/03/2025 HISTORY OF PRESENT ILLNESS: This patient is 64 years old, complaining of abdominal pain, now feeling better. He had some nausea and vomiting. He had some diarrhea also and today he had no bowel movement, but he is passing flatus. No hematochezia, melena, or bleeding per rectum. PAST MEDICAL HISTORY: Hypertension, diabetes, COPD, CHF, multiple hernia operations including infected mesh removal requiring wound VAC. PHYSICAL EXAMINATION: VITAL SIGNS: Afebrile, stable signs with no evidence of pallor, cyanosis or jaundice. NECK: Supple, nontender with no thyromegaly, lymphadenopathy. CHEST AND LUNGS: Clear. HEART: Within normal limits. ABDOMEN: Soft. Little bit tender. No rebound. EXTREMITIES: Unremarkable. NEUROLOGIC: Intact. CLINICAL IMPRESSION: Rule out small bowel obstruction, rule out ileus. PLAN: At this point, needs conservative management, kept NPO to low continuous suction and continue close observation. Should there be need for surgery that will be determined based upon ongoing evaluation. MD FLEX Castaneda/CHRISTIE TID: [id number] RECEIPT: [id number] cc: Ronald Villarreal NP
[2025-01-03] MEDS: ATORVASTATIN 20 MG TAB PO SCH (22:11)
[2025-01-04] VITALS (11 sets, daily range): BP systolic 101–134; BP diastolic 48–64; PULSE 62–108; RESP 16–20; TEMP 97.8–100.4; O2SAT 93–99
[2025-01-04] MEDS: LEVOTHYROXINE SODIUM 25 MCG TAB PO SCH (06:11)
[2025-01-04] MEDS: MORPHINE SULFATE INJ 2 MG/ml SYRG IV PRN (06:11)
[2025-01-04 06:48] LABS: Anion Gap 6 (5-15); Chloride 104 mmol/L (98-107); Sodium 143 mmol/L (136-145)
[2025-01-04 06:49] LABS: Carbon Dioxide 33 mmol/L (20-31)
[2025-01-04 06:50] LABS: Calcium 9.5 mg/dL (8.7-10.4)
[2025-01-04 06:55] LABS: BUN/Creatinine Ratio 8.2 (10.0-20.0); Glucose 92 mg/dL (74-106)
[2025-01-04 06:56] LABS: Blood Urea Nitrogen 5 mg/dL (9-23)
--- NOTE | 2025-01-04 12:45 | DVHPN2 ---
Subjective Patient denies any symptoms at this time. Reviewed: Care Plan, H&P, Labs, Medications Changes from previous H/P or p: No Changes General: Per HPI Objective Vitals Vital Signs Date Time Temp Pulse Resp B/P (MAP) Pulse Ox O2 Delivery O2 Flow Rate FiO2 01/04/25 08:35 98.6 71 19 125/63 (83) 93 98.6 01/04/25 08:00 Nasal Cannula* 4 36 Intake/Output Intake and Output 01/04/25 07:00 Intake Total 1710 ml Output Total 1100 ml Balance 610 ml Intake Oral 1000 ml IV Total 710 ml Output Urine Total 1100 ml General Appearance: Alert, Oriented X3, Cooperative, No acute distress HEENT: Atraumatic, PERRLA Cardiovascular: Normal S1, Normal S2 Abdomen: Normal bowel sounds, Soft Musculoskeletal: Normal sensory function, Normal motor function Skin: Dry, Intact Psych/Mental Status: Mental status NL, Mood NL Medications Current Medications Medications Dose Ordered Sig/Blanca Route Start Time Stop Time Status Last Admin Dose Admin Ceftriaxone Sodium 50 ml @ 100 mls/hr DAILY@09 IV 01/03/25 09:00 01/04/25 08:46 100 MLS/HR Ondansetron HCl 4 mg Q4HP PRN IV 01/02/25 20:00 Morphine Sulfate 2 mg Q4HPRN PRN IV 01/02/25 20:00 01/04/25 06:11 2 MG Diagnostic Test (Pha) 1 strip Q6HR 01/03/25 00:00 01/04/25 11:10 1 STRIP Insulin Human Regular Q6HR SC 01/03/25 00:00 Dextrose 50 ml UD PRN IV 01/02/25 21:30 Levothyroxine Sodium 25 mcg QAM PO 01/04/25 07:00 01/04/25 06:11 25 MCG Atorvastatin Calcium 40 mg HS PO 01/03/25 22:00 01/03/25 22:11 40 MG Laboratory Results Laboratory Tests 01/02/25 17:44 01/04/25 05:45 Chemistry Test 01/04/25 05:45 Calcium Level 9.5 mg/dL (8.7-10.4) Urinalysis Test 01/02/25 17:45 Urine Color Yellow (Yellow) Urine Clarity Turbid (Clear) H Urine pH 5.5 (5.0-9.0) Urine Specific [place] 1.029 (1.001-1.035) Urine Protein 1+ (Negative) H Urine Ketones Negative (Negative) Urine Blood Trace /uL (Negative) H Urine Nitrite Negative (Negative) Urine Bilirubin 1+ (Negative) Urine Urobilinogen 2 mg/dL (Negative) H Urine Leukocyte Esterase 3+ /uL (Negative) Urine RBC 28 /hpf (0 - 3) Urine Microscopic WBC 135 /HPF (0-3) H Urine Squamous Epithelial Cells Few /hpf (<5) Urine Calcium Oxalate Crystals Many (None Seen) Urine Bacteria Few /hpf (None Seen) H Urine Mucus Few (None Seen) Urine Glucose Normal mg/dL (Normal) Labs and/or images reviewed: Labs reviewed by me, Image(s) reviewed by me Assessment/Plan Assessment/Plan Impression: -small-bowel obstruction -obesity -ventral hernia -primary hypertension -morbid obesity -obstructive sleep apnea Plan: Events: No events overnight. Patient tolerating clear liquid diet. No abdominal pain. Denies any nausea. -DC NG tube -advanced to full liquid diet. -surgical consultation: Recommendations reviewed -continue CPAP/BiPAP for obstructive sleep apnea -reassess for discharge in a.m. Total time spent with patient discussing and formulating plan of care: 35 minutes. This medical document was created using an electronic medical record system with [employer] dictation system. Although this document has been carefully reviewed, there may still be some phonetic and typographical errors. These areas are purely typographical due to imperfections of the software programs, and do not reflect any compromise in the patient's medical care. Plan discussed with: Patient, Other (RN) My Orders Orders - MINGO CLEARY NP Procedure Category Date Status Time Clamp Ngt ORDERS 01/03/25 Transmitted 16:22 Clear Liq Diet DIET 01/03/25 Transmitted Dinner Levothyroxine Tablet PHA 01/04/25 In Process (Synthroid Tablet) 07:00 Atorvastatin (Lipitor) PHA 01/03/25 In Process 22:00 Date of Service: January 04, 2025 Billing Provider: MINGO CLEARY NP Common Visit Codes: [id number] INP/OBS CARE(HIGH) MINGO CLEARY NP January 04, 2025 12:45
--- NOTE | 2025-01-04 14:01 | DVHPN2 ---
Progress Note Date Seen: January 04, 2025 Medical Necessity Reason Pt with a Central, PICC or Fol: No Objective vital signs Vital Sign Date Time Temp Pulse Resp B/P (MAP) Pulse Ox O2 Delivery O2 Flow Rate FiO2 01/04/25 12:30 98.5 80 18 108/56 (73) 95 98.5 01/04/25 08:00 Nasal Cannula* 4 36 Total Intake and Output 01/03/25 01/03/25 01/04/25 15:00 23:00 07:00 Intake Total 550 ml 160 ml 1000 ml Output Total 200 ml 900 ml Balance 550 ml -40 ml 100 ml medications Current Medications Medications Dose Ordered Sig/Blanca Route Start Time Stop Time Status Last Admin Dose Admin Ceftriaxone Sodium 50 ml @ 100 mls/hr DAILY@09 IV 01/03/25 09:00 01/04/25 08:46 100 MLS/HR Ondansetron HCl 4 mg Q4HP PRN IV 01/02/25 20:00 Morphine Sulfate 2 mg Q4HPRN PRN IV 01/02/25 20:00 01/04/25 06:11 2 MG Diagnostic Test (Pha) 1 strip Q6HR 01/03/25 00:00 01/04/25 11:10 1 STRIP Insulin Human Regular Q6HR SC 01/03/25 00:00 Dextrose 50 ml UD PRN IV 01/02/25 21:30 Levothyroxine Sodium 25 mcg QAM PO 01/04/25 07:00 01/04/25 06:11 25 MCG Atorvastatin Calcium 40 mg HS PO 01/03/25 22:00 01/03/25 22:11 40 MG laboratory and microbiology Laboratory Tests 01/04/25 05:45 01/02/25 17:44 Test 01/04/25 05:45 Range/Units Serum Glucose 92 74-106 mg/dL Problem List/Assessment/Plan Problem List/Assessment/Plan AFEBRILE VSS ABD SOFT FLATUS + NO BM GASTROGRAFIN NO SBO DC NG TUBE ALLOW SIPS OF WATER/ CLEAR LIQUIDS XIOMARA Plan discussed with: Patient ZHOU LI MD January 04, 2025 14:01
[2025-01-04] MEDS: ACETAMINOPHEN 325 MG TAB PO PRN (16:16)
[2025-01-05 00:11] VITALS: PULSE 77; O2SAT 97
[2025-01-05 05:00] VITALS: BP 117/71; PULSE 64; RESP 18; TEMP 98.6; O2SAT 98
[2025-01-05 08:00] VITALS: PULSE 66; RESP 17; O2SAT 96
[2025-01-05 09:00] VITALS: BP 101/43; PULSE 66; RESP 17; TEMP 97.9; O2SAT 96
--- NOTE | 2025-01-05 11:47 | DVHPN2 ---
Progress Note Date Seen: January 05, 2025 Medical Necessity Reason Pt with a Central, PICC or Fol: No Objective vital signs Vital Sign Date Time Temp Pulse Resp B/P (MAP) Pulse Ox O2 Delivery O2 Flow Rate FiO2 01/05/25 09:00 97.9 66 17 101/43 (62) 96 97.9 01/05/25 00:11 Facial BiPAP Mask 50 01/04/25 20:00 4 Total Intake and Output 01/04/25 01/04/25 01/05/25 15:00 23:00 07:00 Intake Total 1042 ml 150 ml 230 ml Output Total 2550 ml 1200 ml Balance 1042 ml -2400 ml -970 ml medications Current Medications Medications Dose Ordered Sig/Blanca Route Start Time Stop Time Status Last Admin Dose Admin Ceftriaxone Sodium 50 ml @ 100 mls/hr DAILY@09 IV 01/03/25 09:00 01/05/25 09:18 100 MLS/HR Ondansetron HCl 4 mg Q4HP PRN IV 01/02/25 20:00 Morphine Sulfate 2 mg Q4HPRN PRN IV 01/02/25 20:00 01/04/25 06:11 2 MG Diagnostic Test (Pha) 1 strip Q6HR 01/03/25 00:00 01/05/25 11:15 1 STRIP Insulin Human Regular Q6HR SC 01/03/25 00:00 Dextrose 50 ml UD PRN IV 01/02/25 21:30 Levothyroxine Sodium 25 mcg QAM PO 01/04/25 07:00 01/05/25 06:12 25 MCG Atorvastatin Calcium 40 mg HS PO 01/03/25 22:00 01/04/25 22:01 40 MG Acetaminophen 650 mg Q6HP PRN PO 01/04/25 15:45 01/04/25 22:15 650 MG laboratory and microbiology Laboratory Tests 01/04/25 05:45 01/02/25 17:44 Test 01/04/25 05:45 Range/Units Serum Glucose 92 74-106 mg/dL Problem List/Assessment/Plan Problem List/Assessment/Plan AFEBRILE VSS ABD SOFT FLATUS + NO BM GASTROGRAFIN NO SBO ADVANCE DIET XIOMARA CLEARED FOR DISCHARGE Plan discussed with: Patient My Orders My Orders Orders - ZHOU LI MD Procedure Category Date Status Time Mechanical Soft Diet DIET 01/05/25 Transmitted Lunch ZHOU LI MD January 05, 2025 11:47
--- NOTE | 2025-01-05 14:50 | DVHDS2 ---
Discharge Summary Date of Admission January 02, 2025 at 19:48 Date of Discharge: January 05, 2025 Labs/Diagnostic Data: Laboratory Results Test 01/05/25 11:13 01/04/25 05:45 01/02/25 20:33 01/02/25 17:45 POC Glucose 103 mg/dl (70-106) Sodium Level 143 mmol/L (136-145) Potassium Level 4.0 mmol/L (3.5-5.1) Chloride Level 104 mmol/L (98-107) Carbon Dioxide Level 33 mmol/L (20-31) Anion Gap 6 (5-15) Blood Urea Nitrogen 5 mg/dL (9-23) Creatinine 0.61 mg/dL (0.700-1.30) Glomerular Filtration Rate Calc 109 mL/min (>90) BUN/Creatinine Ratio 8.2 (10.0-20.0) Serum Glucose 92 mg/dL (74-106) Calcium Level 9.5 mg/dL (8.7-10.4) Troponin I High Sensitivity 8 ng/L (</=54) Urine Color Yellow (Yellow) Urine Clarity Turbid (Clear) Urine pH 5.5 (5.0-9.0) Urine Specific Lena 1.029 (1.001-1.035) Urine Protein 1+ (Negative) Urine Ketones Negative (Negative) Urine Blood Trace /uL (Negative) Urine Nitrite Negative (Negative) Urine Bilirubin 1+ (Negative) Urine Urobilinogen 2 mg/dL (Negative) Urine Leukocyte Esterase 3+ /uL (Negative) Urine RBC 28 /hpf (0 - 3) Urine Microscopic WBC 135 /HPF (0-3) Urine Squamous Epithelial Cells Few /hpf (<5) Urine Calcium Oxalate Crystals Many (None Seen) Urine Bacteria Few /hpf (None Seen) Urine Mucus Few (None Seen) Urine Glucose Normal mg/dL (Normal) Test 01/02/25 17:44 White Blood Count 4.6 10^3/uL (4.4-10.8) Red Blood Count 5.87 10^6/uL (4.5-5.90) Hemoglobin 16.0 g/dL (13.5-17.5) Hematocrit 47.2 % (41.0-53.0) Mean Corpuscular Volume 80.4 fL (80.0-100.0) Mean Corpuscular Hemoglobin 27.3 pg (28.0-32.0) Mean Corpuscular Hemoglobin Concent 33.9 g/dL (32.0-36.0) Red Cell Distribution Width 19.8 % (11.8-14.3) Platelet Count 147 10^3/uL (140-450) Mean Platelet Volume 9.7 fL (6.9-10.8) Neutrophils (%) (Auto) 61.6 % (37.0-80.0) Lymphocytes (%) (Auto) 18.2 % (10.0-50.0) Monocytes (%) (Auto) 16.9 % (0.0-12.0) Eosinophils (%) (Auto) 2.9 % (0.0-7.0) Basophils (%) (Auto) 0.4 % (0.0-2.0) Neutrophils # (Auto) 2.8 10 ^3/uL (1.6-8.6) Lymphocytes # (Auto) 0.8 10 ^3/uL (0.4-5.4) Monocytes # (Auto) 0.8 10 ^3/uL (0-1.3) Eosinophils # (Auto) 0.1 10 ^3/uL (0-0.8) Basophils # (Auto) 0 10 ^3/uL (0-0.2) Nucleated Red Blood Cells 0.5 % Lactic Acid Level 1.0 mmol/L (0.4-2.0) Total Bilirubin 2.6 mg/dL (0.2-1.0) Aspartate Amino Transferase (AST) 15 U/L (13-40) Alanine Aminotransferase (ALT) 16 U/L (7-40) Alkaline Phosphatase 79 U/L (46-116) Total Protein 6.5 g/dL (5.7-8.2) Albumin 4.5 g/dL (3.2-4.8) Lipase 25 U/L (12-53) Other Laboratory Tests 01/04/25 05:45 01/02/25 17:44 Brief Hx & Hospital Course: 64-year-old male presents for evaluation of abdominal pain. Patient reports a three day history of sharp periumbilical abdominal pain with associated diarrhea. Reports having multiple abdominal surgeries with complications from an abdominal hernia repair. Denies fever or chills. No cardiac or respiratory complaints. Patient has had multiple abdominal hernia repairs including infected mesh which was removed requiring a wound VAC. patient states she has currently has minimal pain. Last BM was yesterday. seen by surgery, placed NGT. afterwards gastrografin with no SBo, had BM, tolerating oral diet. stable to dc home. cleared by surg. have CPAP and o2 at home Condition at Discharge: Good Final Diagnosis/Problems List -small-bowel obstruction -obesity -ventral hernia -primary hypertension -morbid obesity -obstructive sleep apnea Discharge Disposition: Home Discharge Instruct/Medications Diet: Consistent carbohydrate, Cardiac 2g Na,low cholest Activity: No Restrictions, As Tolerated Follow Up/Referral: surg dc clinic Discharge Statement: "Patient was advised to return to the ER or call 911 if any headaches, dizziness, shortness of breath, chest pain, abdominal pain, bleeding, fevers, or worsening of medical condition. Patient was counseled about treatment plan, medications, possible side effects, patient�verbalized understanding. All questions were answered to the best of my ability. This discharge took greater then 30 minutes in planning, reviewing documentation, counseling the patient, and discussing with other team members." ASSESSMENT ASSESSMENT Assessment SBO Date of Service: January 05, 2025 Billing Provider: JOSH MICHEL MD Common Visit Codes: 84986-DAB/OBS DISCH DAY >30min JOSH MICHEL MD January 05, 2025 14:50
[2025-01-05 16:09] VITALS: BP 101/43; PULSE 66; RESP 17; TEMP 97.9; O2SAT 96
== END 2025-01-05 16:40 | disposition home or self-care (01) | DRG 394 ==
LOC: ER 17:30 → OVERFLOW 19:48 → CENTRAL 01-03 16:40
PROVIDERS: ADMIT Nurse Practitioner Acute Care; ATTEND Nurse Practitioner Acute Care
PROC: 5A09357 Assistance with Respiratory Ventilation, Less than 24 Consecutive Hours, Continuous Positive Airway Pressure (ICD-10-PCS; principal; 2025-01-03)
PROC: 0D9670Z Drainage of Stomach with Drainage Device, Via Natural or Artificial Opening (ICD-10-PCS; 2025-01-03)
PROC: 5A09357 Assistance with Respiratory Ventilation, Less than 24 Consecutive Hours, Continuous Positive Airway Pressure (ICD-10-PCS; 2025-01-04)
PROC: 5A09357 Assistance with Respiratory Ventilation, Less than 24 Consecutive Hours, Continuous Positive Airway Pressure (ICD-10-PCS; 2025-01-05)
DX: K43.6 Other and unspecified ventral hernia with obstruction, without gangrene (principal); J96.11 Chronic respiratory failure with hypoxia; Z68.42 Body mass index [BMI] 45.0-49.9, adult; I50.9 Heart failure, unspecified; R82.81 Pyuria; I11.0 Hypertensive heart disease with heart failure; E11.9 Type 2 diabetes mellitus without complications; E66.01 Morbid (severe) obesity due to excess calories; J44.9 Chronic obstructive pulmonary disease, unspecified; G47.33 Obstructive sleep apnea (adult) (pediatric); E78.5 Hyperlipidemia, unspecified; Z88.1 Allergy status to other antibiotic agents
CPT/HCPCS: 36415; 71045; 74176; 74250; 80048; 80053; 81001; 82962; 83605; 83690; 84484; 85025; 94660; 96360; 99291; G0378; J2405